=== PATIENT | female | born 1945 | race African-American/Black ===

== ENCOUNTER 2017-06-29 06:02 | Inpatient (IN) | payer MEDICARE, OTHER ==
[2017-06-29] VITALS (12 sets, daily range): BP systolic 138–162; BP diastolic 85–108
[~2017-06-29] VITALS: Ht 165.1 cm; Wt 78.0 kg
[2017-06-29] MEDS ORDERED: ETOMIDATE (2MG/ML) 20ML VIAL IV ONE (06:12)
[2017-06-29] MEDS ORDERED: SUCCINYLCHOLINE CHLORIDE 20 MG/ML 10ML VIAL IV ONE (06:13)
[2017-06-29] MEDS ORDERED: EPINEPHrine HCL 1 MG/1 ML AMP IM ONE (06:15)
[2017-06-29] MEDS ORDERED: methylPREDNISolone SOD SUCC 125 MG/2 ML VL IV ONE (06:15)
[2017-06-29] MEDS ORDERED: FAMOTIDINE (10MG/ML) 2ML VL IV ONE (06:15)
[2017-06-29] MEDS ORDERED: diphenhdrAMINE HCL 50 MG/1 ML VL IV ONE (06:15)
[2017-06-29] MEDS ORDERED: SODIUM CHLORIDE 0.9% 1,000 ML IV ONE ×2 (06:30→07:16)
[2017-06-29 07:57] LABS: Basophils # (auto) 0.1 uL; Basophils % (auto) 0.5 % (0.0-2.0); Eosinophils # (auto) 0 uL; Eosinophils % (auto) 0.2 % (0.0-7.0); Hematocrit 38.8 % (36.0-46.0); Hemoglobin 12.7 g/dL (12.2-16.2); Lymphocytes # (auto) 1.5 uL; Lymphocytes % (auto) 14.1 % (10.0-50.0); Mean Corpuscular Hgb Conc. 32.8 g/dL (32.0-36.0); Mean Corpuscular Volume 91.6 fL (80.0-100.0); Monocytes # (auto) 0.4 uL; Monocytes % (auto) 3.8 % (0.0-12.0); Neutrophils # (auto) 8.4 uL; Neutrophils % (auto) 81.4 % (37.0-80.0); Platelet Count (auto) 329 10^3/uL (140-450); Red Blood Cells 4.24 10^6/uL (4.0-5.20); Red Cell Distribution Width 13.7 % (11.8-14.3); White Blood Cell 10.3 10^3/uL (4.4-10.8)
[2017-06-29 08:10] LABS: Alanine Aminotransferase 31 U/L (13-56); Albumin 3.6 g/dL (3.4-5.0); Anion Gap 12 (5-15); Aspartate Aminotransferase 27 U/L (15-37); BUN/Creatinine Ratio 15.1; Blood Urea Nitrogen 14 mg/dL (7-18); Calcium 8.8 mg/dL (8.5-10.1); Carbon Dioxide 23 mmol/L (21-32); Chloride 103 mmol/L (98-107); GFR African American 77 mL/min; GFR Non-African American 64 mL/min; Glucose 150 mg/dL (74-106); Sodium 138 mmol/L (136-145)
[2017-06-29 08:13] LABS: Potassium 2.9 mmol/L (3.5-5.1)
[2017-06-29 08:15] LABS: Alkaline Phosphatase 107 U/L (45-117); Bilirubin, Total 0.5 mg/dL (0.2-1.0); Total Protein 8.6 g/dL (6.4-8.2)
[2017-06-29 08:16] LABS: INR 0.98 (0.9-1.15); Partial Thromboplastin Time 31.5 sec (22.64-33.71); Prothrombin Time 10.7 sec (9.37-12.3)
[2017-06-29] MEDS ORDERED: POTASSIUM CHL 10% (20 MEQ/15ML) 15ml ORAL SOLN PO ONE (08:30)
[2017-06-29] MEDS ORDERED: MORPHINE SULFATE 4 MG/ML SYR/VIAL IV PRN ×2 (09:00)
[2017-06-29] MEDS ORDERED: HYDROcodone-ACET 5/325MG TAB PO PRN (09:00)
[2017-06-29] MEDS ORDERED: ALBUTEROL SULF 2.5 MG/0.5ML(0.5%) NEB SOLN NEB PRN (09:00)
[2017-06-29] MEDS ORDERED: PROMETHAZINE HCL 25 MG/ML 1ML IV PRN (09:00)
[2017-06-29] MEDS ORDERED: NITROGLYCERIN 0.4 MG SL TAB SL PRN (09:00)
[2017-06-29] MEDS ORDERED: ACETAMINOPHEN 500 MG TAB PO PRN (09:00)
[2017-06-29] MEDS ORDERED: TEMAZEPAM 15 MG CAP PO PRN (09:00)
[2017-06-29] MEDS ORDERED: LORazepam 0.5 MG TAB PO PRN (09:00)
[2017-06-29] MEDS: FAMOTIDINE (10MG/ML) 2ML VL IV SCH ×2 (10:19→21:52)
[2017-06-29] MEDS: ALBUTEROL SULF 2.5 MG/0.5ML(0.5%) NEB SOLN NEB SCH ×2 (11:10→18:35)
[2017-06-29] MEDS: methylPREDNISolone SOD SUCC 40 MG/ML VL IV SCH ×3 (12:07→23:36)
[2017-06-29] MEDS ORDERED: LISI2.5T47 PO (17:08)
[2017-06-30] MEDS: ALBUTEROL SULF 2.5 MG/0.5ML(0.5%) NEB SOLN NEB SCH ×2 (02:02→05:53)
[2017-06-30 05:00] VITALS: BP 133/96
[2017-06-30] MEDS: methylPREDNISolone SOD SUCC 40 MG/ML VL IV SCH ×2 (05:37→11:34)
[2017-06-30 07:04] LABS: Basophils # (auto) 0.1 uL; Basophils % (auto) 0.5 % (0.0-2.0); Eosinophils # (auto) 0 uL; Hemoglobin 10.7 g/dL (12.2-16.2); Lymphocytes # (auto) 1.2 uL; Lymphocytes % (auto) 10.2 % (10.0-50.0); Mean Corpuscular Hemoglobin 29.8 pg (28.0-32.0); Mean Corpuscular Hgb Conc. 32.4 g/dL (32.0-36.0); Mean Corpuscular Volume 91.8 fL (80.0-100.0); Monocytes # (auto) 0.5 uL; Monocytes % (auto) 4.6 % (0.0-12.0); Neutrophils % (auto) 84.7 % (37.0-80.0); Nucleated Red Blood Cells % 0.1 %; Platelet Count (auto) 302 10^3/uL (140-450); Red Blood Cells 3.59 10^6/uL (4.0-5.20); Red Cell Distribution Width 13.9 % (11.8-14.3); White Blood Cell 11.8 10^3/uL (4.4-10.8)
[2017-06-30 07:23] LABS: Albumin 3.3 g/dL (3.4-5.0); BUN/Creatinine Ratio 17.8; Calcium 8.8 mg/dL (8.5-10.1); Potassium 3.5 mmol/L (3.5-5.1)
[2017-06-30 07:26] LABS: Bilirubin, Total 0.3 mg/dL (0.2-1.0); Total Protein 8.1 g/dL (6.4-8.2)
[2017-06-30 08:33] VITALS: BP 140/98
[2017-06-30] MEDS: FAMOTIDINE (10MG/ML) 2ML VL IV SCH (09:26)
[2017-06-30 11:53] VITALS: BP 144/86
[2017-06-30 12:10] VITALS: BP 144/86
== END 2017-06-30 12:30 | disposition home or self-care (01) | DRG 916 ==
LOC: ER 06:02 → TELE 06:03 → TELE-CENTR 16:56
PROVIDERS: ADMIT Internal Medicine; ATTEND Internal Medicine
PROC: 30233L1 Transfusion of Nonautologous Fresh Plasma into Peripheral Vein, Percutaneous Approach (ICD-10-PCS; principal; 2017-06-29)
PROC: 30233K1 Transfusion of Nonautologous Frozen Plasma into Peripheral Vein, Percutaneous Approach (ICD-10-PCS; 2017-06-29)
DX: T78.3XXA Angioneurotic edema, initial encounter (principal); I10 Essential (primary) hypertension; Z82.49 Family history of ischemic heart disease and other diseases of the circulatory system; T46.4X5A Adverse effect of angiotensin-converting-enzyme inhibitors, initial encounter
CPT/HCPCS: 36415; 36430; 71045; 80053; 83880; 84484; 85025; 85610; 85652; 85730; 86850; 86900; 86901; 94640; 96372; 96374; 96375; 99291; J0330; J3490

== ENCOUNTER 2024-09-04 01:29 | Inpatient (IN) | payer OTHER ==
[~2024-09-04] VITALS: Ht 167.6 cm; Wt 71.0 kg
[2024-09-04] VITALS (10 sets, daily range): BP systolic 95–109; BP diastolic 60–68; PULSE 76–113; RESP 18–32; TEMP 98–98.7; O2SAT 0–98
[~2024-09-04 01:29] MED LIST: LISI2.5T47 PO
--- NOTE | 2024-09-04 01:44 | ED.PDOC ---
Altered Mental Status HPI Comments 79 year old female presents to the ED via EMS with a chief complaint of ALOC onset yesterday. Per EMS, patient woke up yesterday experiencing some confusion, loss of appetite. Daughter checked on patient about an hour ago, noticed patient urinated on herself, urine had a strong odor, which is unusual for patient to urinate on herself, 911 was called. PMHx HTN. Upon ED arrival, patient is able to answer her name but is not able to state year or city. Patient denies any abdominal pain. Patient is a poor historian. Chief Complaint: ALOC Time Seen by MD: 01:40 Primary Care Provider: DR KIM Reviewed Notes: Medications, Allergies Allergies: Coded Allergies: NO KNOWN ALLERGIES (Unverified , 03/07/16) Home Meds Reported Medications Lisinopril (Lisinopril) Unknown Strength Tab, PO DAILY, TAB 06/29/17 Information Source: Patient, Emergency Med Personnel Mode of Arrival: EMS Severity: Moderate Timing: Days Duration: Since onset Prehospital treatment: None Quality: Decreased Alertness, Change in Behavior, Confusion, Not Eating Recent: None History of: None Associated Signs and Symptoms: None Past Medical History PAST MEDICAL HISTORY: HTN Surgical History: Denies all surgeries HIGH SPEED PRINTER OPERATOR History: No Pertinent HIGH SPEED PRINTER OPERATOR History Family History Family History: Unknown Social History Smoker: Non-Smoker Alcohol: Denies ETOH Use Drugs: Denies Drug Use Lives In: Home Unable to Obtain due to: Altered Mental Status Physical Exam General Appearance: No Apparent Distress, Normal HEENT: Normal ENT Inspection, Pharynx Normal, TMs Normal Neck: Full Range of Motion, Non-Tender, Normal, Normal Inspection Respiratory: Chest Non-Tender, Lungs Clear, No Accessory Muscle Use, No Resp iratory Distress, Normal Breath Sounds Cardiovascular: No Edema, No JVD, No Murmur, No Gallop, Normal Peripheral Pulses, Regular Rate/Rhythm Breast Exam: Deferred Gastrointestinal: No Organomegaly, Non Tender, No Pulsatile Mass, Normal Bowel Sounds, Soft Genitalia: Deferred Pelvic: Deferred Rectal: Deferred Extremities: No calf tenderness, Normal capillary refill, Normal inspection, Normal range of motion, Non-tender, No pedal edema Musculoskeletal : Apperance: Normal Neurologic: Alert, awning frame maker II-XII nml as Tested, No Motor Deficits, Normal Affect, Normal Mood, No Sensory Deficits Cerebellar Function: Normal Reflexes: Normal Skin: Dry, Normal Color, Warm Lymphatic: No Adenopathy Was a procedure done? Was a procedure done?: No Differential Diagnosis (ALOC) Differential Diagnosis: Dehydration, Hypoglycemia, Encephalopathy, Meningitis, Sepsis, Hypoxemia, Seizure, Closed Head Injury, Mass Lesion, SAH, Drug Overdose, ETOH Intoxication, Renal Failure, Other X-Ray, Labs, Meds, VS Vital Signs Date Time Temp Pulse Resp B/P (MAP) Pulse Ox O2 Delivery O2 Flow Rate FiO2 09/04/24 03:48 90 Non-Rebreather 15 100 100 09/04/24 02:15 98.2 102 22 103/66 (78) 92 98.2 09/04/24 01:39 98.4 109 18 117/77 (90) 96 98.4 09/04/24 01:35 111 Lab Test 09/04/24 02:39 09/04/24 01:56 09/04/24 01:38 Range/Units Troponin I High Sensitivity 7 8 </=34 ng/L White Blood Count 7.8 4.4-10.8 10^3/uL Red Blood Count 4.32 4.0-5.20 10^6/uL Hemoglobin 13.4 12.2-16.2 g/dL Hematocrit 40.4 36.0-46.0 % Mean Corpuscular Volume 93.7 80.0-100.0 fL Mean Corpuscular Hemoglobin 31.1 28.0-32.0 pg Mean Corpuscular Hemoglobin Concent 33.2 32.0-36.0 g/dL Red Cell Distribution Width 13.9 11.8-14.3 % Platelet Count 150 140-450 10^3/uL Mean Platelet Volume 7.1 6.9-10.8 fL Neutrophils (%) (Auto) 88.6 H 37.0-80.0 % Lymphocytes (%) (Auto) 7.2 L 10.0-50.0 % Monocytes (%) (Auto) 3.8 0.0-12.0 % Eosinophils (%) (Auto) 0.0 0.0-7.0 % Basophils (%) (Auto) 0.4 0.0-2.0 % Neutrophils # (Auto) 6.9 1.6-8.6 10 ^3/uL Lymphocytes # (Auto) 0.6 0.4-5.4 10 ^3/uL Monocytes # (Auto) 0.3 0-1.3 10 ^3/uL Eosinophils # (Auto) 0 0-0.8 10 ^3/uL Basophils # (Auto) 0 0-0.2 10 ^3/uL Nucleated Red Blood Cells 0.1 % Sodium Level 137 136-145 mmol/L Potassium Level 3.0 L 3.5-5.1 mmol/L Chloride Level 106 98-107 mmol/L Carbon Dioxide Level 18 L 20-31 mmol/L Anion Gap 13 5-15 Blood Urea Nitrogen 19 9-23 mg/dL Creatinine 1.17 H 0.550-1.02 mg/dL Glomerular Filtration Rate Calc 48 >90 mL/min BUN/Creatinine Ratio 16.2 10.0-20.0 Serum Glucose 138 H 74-106 mg/dL Lactic Acid Level 1.7 0.4-2.0 mmol/L Calcium Level 9.5 8.7-10.4 mg/dL Magnesium Level 2.0 1.6-2.6 mg/dL Total Bilirubin 0.6 0.2-1.0 mg/dL Aspartate Amino Transferase (AST) 32 13-40 U/L Alanine Aminotransferase (ALT) 16 7-40 U/L Alkaline Phosphatase 69 46-116 U/L Total Protein 7.5 5.7-8.2 g/dL Albumin 4.2 3.2-4.8 g/dL Plasma/Serum Blood Alcohol < 3.0 <10 mg/dL POC Glucose 111 H 70-106 mg/dl Current Medications Medications (Trade) Dose Ordered Sig/Jose Route Start Time Stop Time Status Last Admin Sodium Chloride 1,000 ml @ 1,000 mls/hr Q1H ONCE IVB 09/04/24 01:45 09/04/24 02:44 DC 09/04/24 01:47 Ceftriaxone Sodium 50 ml @ 100 mls/hr ONCE ONCE IV 09/04/24 03:15 09/04/24 03:44 DC 09/04/24 03:38 Azithromycin 250 ml @ 125 mls/hr ONCE ONCE IV 09/04/24 03:15 09/04/24 05:14 09/04/24 03:47 Time of 1ST Reevaluation: 02:10 Reevaluation 1ST: Unchanged Time of 2ND Reevaluation: 03:52 Reevaluation 2ND: Unchanged Patient Education/Counseling: Diagnosis, Treatment, Prognosis Family Education/Counseling: No Family Present Additional Information The following tests were ordered, and results were reviewed by me: EKG, BLOOD A LCOHOL, TROP-x2, CBC, CMP, LA W/ REFLEX, UA, XY CHEST, CT HEAD WO CONTRAST, BLOOD CULTURE, URINE BACTERIAL CULTURE, MAGNESIUM, Additional Information was gathered from interviewing the following independent historians: EMS I reviewed and agreed with the following test results read by other providers: XY CHEST, CT HEAD WO CONTRAST, I discussed treatment and results with medical personnel and: Patient Comprehensive systems review obtained and negative except for what is stated in the HPI. Sepsis focused exam: focus exam completed (In the initial resuscitation at least 30 mL/kg of IV crystalloid fluid was NOT given within the first 3 hr due to concerns of fluid overload), time: (0230) Sepsis Sepsis Reasesment Focused Exam Sepsis focused exam: focus exam completed (In the initial resuscitation at least 30 mL/kg of IV crystalloid fluid was NOT given within the first 3 hr due to concerns of fluid overload), time: (229) Departure 1 Departure Time of Disposition: 03:53 Impression: Primary Impression: Altered mental status Additional Impressions: Pneumonia Dementia Respiratory failure with hypoxia Syncope Disposition: ADMITTED INPATIENT Condition: Guarded Discharged With: Self, Relative Comments Altered Mental Status with Seizure-like Activity Chief Complaint: Altered mental status with seizure-like activity History of Present Illness: 79-year-old female with known history of mild dementia presented via EMS after her daughter noticed increased confusion from baseline. Per EMS report, patient experienced an episode where she stiffened up with eye rolling and became unresponsive for approximately one minute before regaining consciousness. A similar episode was witnessed upon arrival to the ED. After these episodes, patient regained consciousness quickly but remained oriented only to self. Patient denies any pain or other complaints. Notably, patient was found to be hypoxic on room air, requiring supplemental oxygen via nasal cannula at 4L/min to maintain adequate oxygenation. Review of Systems: Constitutional: Positive for altered mental status Neurological: Positive for confusion, seizure-like activity Respiratory: Positive for hypoxia All other systems: Patient unable to provide reliable review due to confusion Vital Signs: Only documented vital sign: Hypoxia on room air, requiring 4L NC with improvement in oxygen saturation Physical Exam: Mental Status: Oriented to self only, confused from baseline Lab Results: WBC: 7.8 (normal) Potassium: 3.0 (low) Creatinine: 1.17 (slightly elevated) Chemistry panel: Otherwise normal Troponin: Normal Alcohol level: Undetectable Imaging and Other Relevant Results: Chest X-ray: Right-sided pneumonia Medical Decision Making: Summary Statement: 79-year-old female with history of dementia presenting with acute altered mental status, seizure-like activity, and hypoxia found to have right-sided pneumonia. Problem List: 1. Acute altered mental status 2. Seizure-like activity 3. Right- sided pneumonia 4. Hypoxic respiratory failure 5. Hypokalemia 6. Mild renal insufficiency Differential Diagnosis: 1. Healthcare-associated pneumonia 2. New-onset seizures 3. Metabolic encephalopathy 4. Acute delirium 5. Sepsis ED Course: Patient received IV fluids, empiric antibiotics (Rocephin and azithromycin IV), and supplemental oxygen. Decision made to admit for further workup and management. Assessment and Plan: 1. Altered Mental Status/Seizure-like Activity: - Likely secondary to underlying pneumonia and hypoxia - Will require neurological evaluation during admission - Consider EEG monitoring 2. Right-sided Pneumonia: - Started on IV Rocephin and azithromycin - Continue supplemental oxygen as needed - Monitor respiratory status 3. Hypoxic Respiratory Failure: - Currently stable on 4L NC - Continue oxygen supplementation - Monitor oxygen saturation 4. Hypokalemia (K=3.0): - Initiate potassium replacement - Serial electrolyte monitoring Disposition: Admit to medical floor for further management and workup Billing Information: ICD-10: J18.9 - Pneumonia, unspecified organism ICD-10: R56.9 - Unspecified convulsions ICD-10: J96.01 - Acute respiratory failure with hypoxia ICD-10: F03.90 - Unspecified dementia without behavioral disturbance ICD-10: R55 - Syncope and collapse Critical Care Note Critical Care Time?: Yes (35 min-critical care time only) Critical care comment: Total critical care time: Approximately 36 minutes Due to a high probability of clinically significant, life threatening deterioration, the patient required my highest level of preparedness to intervene emergently and I personally spent this critical care time directly and personally managing the patient. This critical care time included obtaining a history; examining the patient; pulse oximetry; ordering and review of studies; arranging urgent treatment with development of a management plan; evaluation of patient's response to treatment; frequent reassessment; and, discussions with other providers. This critical care time was performed to assess and manage the high probability of imminent, life-threatening deterioration that could result in multi-organ failure. It was exclusive of separately billable procedures and treating other patients. Stability Stability form required: No Heart Score Heart Score: Heart Score Response (Comments) Value History Slightly Suspicious 0 EKG Normal 0 Age >65 2 Risk Factors 1 or 2 risk factors 1 Troponin Normal limit 0 Total 3 I personally scribed for SANTI MYLES MD ([email or web address]) on 09/04/24 at 01:44. Electronically submitted by Kassie Mann ([email or web address]). I personally scribed for SANTI MYLES MD ([email or web address]) on 09/04/24 at 01:47. Electronically submitted by Kassie Mann ([email or web address]). SANTI MYLES MD Sep 04, 2024 01:44
[2024-09-04] MEDS: SODIUM CHLORIDE 0.9% 1,000 ML IVB ONE (01:47)
[2024-09-04 02:16] LABS: Basophils # (auto) 0 10 ^3/uL (0-0.2); Basophils % (auto) 0.4 % (0.0-2.0); Eosinophils # (auto) 0 10 ^3/uL (0-0.8); Hematocrit 40.4 % (36.0-46.0); Hemoglobin 13.4 g/dL (12.2-16.2); Lymphocytes # (auto) 0.6 10 ^3/uL (0.4-5.4); Lymphocytes % (auto) 7.2 % (10.0-50.0); Mean Corpuscular Hemoglobin 31.1 pg (28.0-32.0); Mean Corpuscular Hgb Conc. 33.2 g/dL (32.0-36.0); Mean Corpuscular Volume 93.7 fL (80.0-100.0); Monocytes # (auto) 0.3 10 ^3/uL (0-1.3); Monocytes % (auto) 3.8 % (0.0-12.0); Neutrophils # (auto) 6.9 10 ^3/uL (1.6-8.6); Neutrophils % (auto) 88.6 % (37.0-80.0); Nucleated Red Blood Cells % 0.1 %; Platelet Count (auto) 150 10^3/uL (140-450); Red Blood Cells 4.32 10^6/uL (4.0-5.20); Red Cell Distribution Width 13.9 % (11.8-14.3); White Blood Cell 7.8 10^3/uL (4.4-10.8)
--- NOTE | 2024-09-04 02:28 | DVH ---
CHEST RADIOGRAPH Indication: weak, ALOC Technique: Single frontal view of the chest was obtained COMPARISON: None FINDINGS: Lines and Tubes: None Lungs: Consolidative infiltrate is noted within the medial right lung base. Pleura: No effusion. No pneumothorax. Cardiomediastinal contours: Unremarkable Bones: Unremarkable IMPRESSION: 1. Medial right lung base pneumonia.
--- NOTE | 2024-09-04 02:34 | DVH ---
EXAM: CT HEAD WITHOUT CONTRAST INDICATION: ALOC TECHNIQUE: CT of the head without intravenous contrast. Radiation Dose : 1. Head: CT Dose: CTDI volume is 62.79 mGy. Dose-length product is 1235.85 mGy*cm The dose indicators for CT are the volume Computed Tomography (CT) Dose Index (CTDIvol) and the Dose Length Product (DLP), and are measured in units of mGy and mGy-cm, respectively. These indicators are not patient dose, but values generated from the CT scanner acquisition factors. The report includes radiation exposure data for exposures received during this examination. COMPARISON: None FINDINGS: There is no evidence of acute intracranial hemorrhage, extra-axial collection, mass effect, midline s hift, herniation or hydrocephalus. The ventricles, sulci and cisterns are age appropriate. The rebollar-white differentiation is intact. Patchy periventricular and subcortical white matter hypoattenuation is nonspecific but may be related to small vessel ischemic disease. The visualized paranasal sinuses and mastoid air cells are clear. The surrounding soft tissues and osseous structures are unremarkable. IMPRESSION: 1. No acute intracranial abnormality. 2. Chronic sequelae of microvascular disease. Radiation optimization: All CT scans at this facility use at least one of these dose optimization gloria hniques: automated exposure control mA and/or kV adjustment per patient size (includes targeted exam s where dose is matched to clinical indication) or iterative reconstruction.
[2024-09-04 03:11] LABS: Alanine Aminotransferase 16 U/L (7-40); Albumin 4.2 g/dL (3.2-4.8); Alkaline Phosphatase 69 U/L (46-116); Anion Gap 13 (5-15); Aspartate Aminotransferase 32 U/L (13-40); BUN/Creatinine Ratio 16.2 (10.0-20.0); Blood Urea Nitrogen 19 mg/dL (9-23); Calcium 9.5 mg/dL (8.7-10.4); Chloride 106 mmol/L (98-107); Sodium 137 mmol/L (136-145); Total Protein 7.5 g/dL (5.7-8.2)
[2024-09-04 03:12] LABS: Bilirubin, Total 0.6 mg/dL (0.2-1.0)
[2024-09-04 03:23] LABS: Carbon Dioxide 18 mmol/L (20-31); Glucose 138 mg/dL (74-106)
[2024-09-04] MEDS: cefTRIAXone 1GM/50ML D5W 50 ML IV ONE (03:38)
[2024-09-04 03:47] LABS: Blood Alcohol < 3.0 mg/dL (<10)
[2024-09-04] MEDS: AZITHROMYCIN 500MG/ 250ML 250 ML IV ONE (03:47)
[2024-09-04] MEDS: ONDANSETRON HCL 4 MG/2 ML VIAL IV ONE (04:16)
[2024-09-04] MEDS ORDERED: NITROGLYCERIN 0.4 MG SL TAB SL PRN (04:30)
[2024-09-04] MEDS ORDERED: MORPHINE SULFATE INJ 2 MG/ml SYRG IV PRN (04:30)
[2024-09-04] MEDS ORDERED: ONDANSETRON HCL 4 MG/2 ML VIAL IV PRN (04:30)
[2024-09-04] MEDS ORDERED: ACETAMINOPHEN 325 MG TAB PO PRN (04:30)
[2024-09-04] MEDS ORDERED: ALBUTEROL SULF 2.5 MG/0.5ML(0.5%) NEB SOLN NEB PRN (04:30)
--- NOTE | 2024-09-04 05:01 | ECG ---
[facility] Test Date: 2024-09-04 Test Time: 01:35:34 Pat Name: EDU BERMUDEZ Department: ED Room: 0280T Gender: F Assessment Clinician: er : 1945 Requested By: SANTI MYLES Order Number: [id number] Reading MD: Yohan Holloway Measurements Intervals Ramsey Rate: 111 P: 62 MI: 166 QRS: -7 QRSD: 104 T: 77 QT: 357 QTc: 485 Interpretive Statements Sinus tachycardia Atrial premature complex Borderline repolarization abnormality Borderline prolonged QT interval Baseline wander in lead(s) I,II,aVR Electronically Signed On 09-07-2024 20:21:10 PDT by Yohan Holloway Please click the below link to view image of tracing.
--- NOTE | 2024-09-04 05:20 | DVHHP2 ---
History of Present Illness Reason for Visit: Altered mental status History of Present Illness 79-year-old female presents for evaluation of altered mental status. Patient is currently lethargic oriented x2. Per family he is at the bedside patient became progressively more altered yesterday with decreased appetite. She also urinated on herself. They report the urine having strong odor. On arrival to the emergency department patient was also noted to be hypoxic and was placed on high-flow oxygen for a short period of time. Currently the patient is on facemask saturating 97%. No complaints of chest pain. No unilateral weakness or slurred speech noted. Past Medical History Hypertension Past Surgical History None Family History Noncontributory Smoke: No ALCOHOL: none Drugs: None Lives: with Family Review of Systems Review of Systems Review of Systems are limited due to the patient's altered mental status Allergies: Coded Allergies: NO KNOWN ALLERGIES (Unverified , 03/07/16) Medications Current Medications Medications Dose Ordered Sig/Jose Route Start Time Stop Time Status Last Admin Dose Admin Ceftriaxone Sodium 50 ml @ 100 mls/hr DAILY@09 IV 09/05/24 09:00 Azithromycin 250 ml @ 125 mls/hr DAILY IV 09/05/24 10:00 Albuterol 2.5 mg Q6HPRN PRN NEB 09/04/24 04:30 Ondansetron HCl 4 mg Q4HP PRN IV 09/04/24 04:30 Enoxaparin Sodium 40 mg DAILY SC 09/04/24 10:00 Acetaminophen 650 mg Q6HP PRN PO 09/04/24 04:30 Nitroglycerin 0.4 mg Q5MINP PRN SL 09/04/24 04:30 Morphine Sulfate 2 mg Q30M PRN IV 09/04/24 04:30 Exam Vital Signs Vital Signs Date Time Temp Pulse Resp B/P (MAP) Pulse Ox O2 Delivery O2 Flow Rate FiO2 09/04/24 04:32 91 Non-Rebreather 15.0 09/04/24 04:32 N/A 09/04/24 04:32 98.2 113 32 103/66 98.2 Exam Gen: 79-year-old female in mild distress Skin: Warm, dry, normal color and texture, no rash. HEENT: Normocephalic atraumatic, mucous membranes moist and pink. Neck: Cervical and supraclavicular nodes normal without enlargement, trachea is midline, thyroid gland is normal without masses. Pulmonary: Diminished breath sounds bilaterally Cardiac: Regular rate and rhythm. No murmur Abdomen: Soft, nontender, nondistended, bowel sounds present all 4 quadrants, no guarding, no rigidity, no organomegaly. Extremities: No cyanosis, clubbing, no edema Neuro: Lethargic, no focal deficits Labs/Xrays ORDERING PHYSICIAN: SANTI MYLES MD PROCEDURE(s): CXRP - CHEST PORTABLE REASON: weak, ALOC ORDER NUMBER(s): [id number], ACCESSION NUMBER(s): [id number] CHEST RADIOGRAPH Indication: weak, ALOC Technique: Single frontal view of the chest was obtained COMPARISON: None FINDINGS: Lines and Tubes: None Lungs: Consolidative infiltrate is noted within the medial right lung base. Pleura: No effusion. No pneumothorax. Cardiomediastinal contours: Unremarkable Bones: Unremarkable IMPRESSION: 1. Medial right lung base pneumonia. RING PHYSICIAN: SANTI MYLES MD PROCEDURE(s): HWOCT - HEAD WITHOUT CONTRAST REASON: ALOC ORDER NUMBER(s): [id number], ACCESSION NUMBER(s): [id number] EXAM: CT HEAD WITHOUT CONTRAST INDICATION: ALOC TECHNIQUE: CT of the head without intravenous contrast. Radiation Dose : 1. Head: CT Dose: CTDI volume is 62.79 mGy. Dose-length product is 1235.85 mGy*cm The dose indicators for CT are the volume Computed Tomography (CT) Dose Index (CTDIvol) and the Dose Length Product (DLP), and are measured in units of mGy and mGy-cm, respectively. These indicators are not patient dose, but values generated from the CT scanner acquisition factors. The report includes radiation exposure data for exposures received during this examination. COMPARISON: None FINDINGS: There is no evidence of acute intracranial hemorrhage, extra-axial collection, mass effect, midline shift, herniation or hydrocephalus. The ventricles, sulci and cisterns are age appropriate. The rebollar-white differentiation is intact. Patchy periventricular and subcortical white matter hypoattenuation is nonspecific but may be related to small vessel ischemic disease. The visualized paranasal sinuses and mastoid air cells are clear. The surrounding soft tissues and osseous structures are unremarkable. IMPRESSION: 1. No acute intracranial abnormality. 2. Chronic sequelae of microvascular disease. Radiation optimization: All CT scans at this facility use at least one of these dose optimization techniques: automated exposure control mA and/or kV adjustment per patient size (includes targeted exams where dose is matched to clinical indication) or iterative reconstruction. Labs Test 09/04/24 02:39 09/04/24 01:56 09/04/24 01:38 Range/Units Troponin I High Sensitivity 7 </=34 ng/L White Blood Count 7.8 4.4-10.8 10^3/uL Red Blood Count 4.32 4.0-5.20 10^6/uL Hemoglobin 13.4 12.2-16.2 g/dL Hematocrit 40.4 36.0-46.0 % Mean Corpuscular Volume 93.7 80.0-100.0 fL Mean Corpuscular Hemoglobin 31.1 28.0-32.0 pg Mean Corpuscular Hemoglobin Concent 33.2 32.0-36.0 g/dL Red Cell Distribution Width 13.9 11.8-14.3 % Platelet Count 150 140-450 10^3/uL Mean Platelet Volume 7.1 6.9-10.8 fL Neutrophils (%) (Auto) 88.6 H 37.0-80.0 % Lymphocytes (%) (Auto) 7.2 L 10.0-50.0 % Monocytes (%) (Auto) 3.8 0.0-12.0 % Eosinophils (%) (Auto) 0.0 0.0-7.0 % Basophils (%) (Auto) 0.4 0.0-2.0 % Neutrophils # (Auto) 6.9 1.6-8.6 10 ^3/uL Lymphocytes # (Auto) 0.6 0.4-5.4 10 ^3/uL Monocytes # (Auto) 0.3 0-1.3 10 ^3/uL Eosinophils # (Auto) 0 0-0.8 10 ^3/uL Basophils # (Auto) 0 0-0.2 10 ^3/uL Nucleated Red Blood Cells 0.1 % D-Dimer, Quantitative 0.73 H 0.0-0.49 mg/L FEU Sodium Level 137 136-145 mmol/L Potassium Level 3.0 L 3.5-5.1 mmol/L Chloride Level 106 98-107 mmol/L Carbon Dioxide Level 18 L 20-31 mmol/L Anion Gap 13 5-15 Blood Urea Nitrogen 19 9-23 mg/dL Creatinine 1.17 H 0.550-1.02 mg/dL Glomerular Filtration Rate Calc 48 >90 mL/min BUN/Creatinine Ratio 16.2 10.0-20.0 Serum Glucose 138 H 74-106 mg/dL Lactic Acid Level 1.7 0.4-2.0 mmol/L Calcium Level 9.5 8.7-10.4 mg/dL Magnesium Level 2.0 1.6-2.6 mg/dL Total Bilirubin 0.6 0.2-1.0 mg/dL Aspartate Amino Transferase (AST) 32 13-40 U/L Alanine Aminotransferase (ALT) 16 7-40 U/L Alkaline Phosphatase 69 46-116 U/L Total Protein 7.5 5.7-8.2 g/dL Albumin 4.2 3.2-4.8 g/dL Plasma/Serum Blood Alcohol < 3.0 <10 mg/dL POC Glucose 111 H 70-106 mg/dl Assessment/Plan Assessment/Plan Assessment Metabolic encephalopathy Community-acquired pneumonia Acute hypoxic respiratory failure Hypokalemia Possible urinary tract infection Plan Admit the patient to [facility] to the hospitalist Rocephin/azithromycin Med nebs UA pending Continue treatment per orders Total critical care time excluding procedures performed this 50 minutes. Plan discussed with: Patient My Orders Orders - SARAH DELANEY AGACNP Procedure Category Date Status Time Albuterol Medneb PHA 09/04/24 In Process (Ventolin Medneb) 04:30 Admit ADMIT 09/04/24 Transmitted 04:25 Ondansetron Hcl PHA 09/04/24 In Process (Zofran) 04:30 Enoxaparin Sodium PHA 09/04/24 In Process (Lovenox) 10:00 Complete Blood Count LAB 09/05/24 Verified 04:00 Comprehensive LAB 09/05/24 Verified Metabolic Panel 04:00 Cardiac DIET 09/04/24 Transmitted Diet-2gna,Lofat,Lochol Breakfast Condition: Critical ALEXUS 09/04/24 In Process 04:25 Acetaminophen Tablet PHA 09/04/24 In Process (Tylenol Tablet) 04:30 Bedrest With Bathroom ALEXUS 09/04/24 In Process Privileg 04:25 Nitroglycerin PHA 09/04/24 In Process Sublingual (Ntrostat 04:30 Morphine Sulfate PHA 09/04/24 In Process Injection 04:30 Stat Ekg For Chest ALEXUS 09/04/24 In Process Pain 04:25 Notify Md Of Changes ALEXUS 09/04/24 In Process From Base 04:25 Edging Machine Operator For ALEXUS 09/04/24 In Process 24 Hours 04:25 Emergency Dysrhythmia ALEXUS 09/04/24 In Process Protocol 04:25 Rhythm Strips Once ALEXUS 09/04/24 In Process Every Shift 04:25 Oxygen By Nasal RT 09/04/24 Transmitted Cannula 04:25 Ceftriaxone 1gm/50ml PHA 09/05/24 In Process D5w (Rocephin) 09:00 Azithromycin 500mg/ PHA 09/05/24 In Process 250ml (Zithromax 50 10:00 Transfer Orders XFER 09/04/24 Verified 05:15 Date of Service: Sep 04, 2024 Billing Provider: SARAH DELANEY Common Visit Codes: [id number] CARE 30-74 MIN SARAH DELANEY Sep 04, 2024 05:20
[2024-09-04] MEDS: POTASSIUM EFFERVESENT TAB 25 MEQ PO ONE (06:26)
[2024-09-04] MEDS: ENOXAPARIN SOD 40 MG/0.4 ML SYRINGE SC SCH (10:13)
[2024-09-04] MEDS: SOD CHL 0.45% WITH 20MEQ KCL 1,000 ML IV ONE (11:12)
--- NOTE | 2024-09-04 12:07 | DVHPN2 ---
Subjective Patient was somewhat encephalopathic. Denies any symptoms at this time. Reviewed: Care Plan, H&P, Medications Changes from previous H/P or p: No Changes General: Per HPI Objective Vitals Vital Signs Date Time Temp Pulse Resp B/P (MAP) Pulse Ox O2 Delivery O2 Flow Rate FiO2 09/04/24 11:10 86 21 106/56 (73) 91 09/04/24 10:08 Non-Rebreather 15 N/A 09/04/24 04:32 98.2 98.2 General Appearance: Alert, Cooperative, mild distress, Other (Encephalopathic) HEENT: Atraumatic, PERRLA Lungs: Normal air movement, Other (Rhonchi to right lower lobe) Cardiovascular: Normal S1, Normal S2 Abdomen: Normal bowel sounds, Soft, No tenderness, No hepatospenomegaly, No masses Genitourinary: No Apparent Abnormalities Musculoskeletal: Normal sensory function, Normal motor function Skin: Dry, Intact Psych/Mental Status: Mental status NL, Mood NL Medications Current Medications Medications Dose Ordered Sig/Jose Route Start Time Stop Time Status Last Admin Dose Admin Ceftriaxone Sodium 50 ml @ 100 mls/hr DAILY@09 IV 09/05/24 09:00 Azithromycin 250 ml @ 125 mls/hr DAILY IV 09/05/24 10:00 Albuterol 2.5 mg Q6HPRN PRN NEB 09/04/24 04:30 Ondansetron HCl 4 mg Q4HP PRN IV 09/04/24 04:30 Enoxaparin Sodium 40 mg DAILY SC 09/04/24 10:00 09/04/24 10:13 40 MG Acetaminophen 650 mg Q6HP PRN PO 09/04/24 04:30 Nitroglycerin 0.4 mg Q5MINP PRN SL 09/04/24 04:30 Morphine Sulfate 2 mg Q30M PRN IV 09/04/24 04:30 Laboratory Results Laboratory Tests 09/04/24 01:56 Chemistry Test 09/04/24 01:56 Albumin 4.2 g/dL (3.2-4.8) Calcium Level 9.5 mg/dL (8.7-10.4) Magnesium Level 2.0 mg/dL (1.6-2.6) Total Protein 7.5 g/dL (5.7-8.2) Coagulation Test 09/04/24 01:56 D-Dimer, Quantitative 0.73 mg/L FEU (0.0-0.49) H LFT Test 09/04/24 01:56 Alanine Aminotransferase (ALT) 16 U/L (7-40) Alkaline Phosphatase 69 U/L (46-116) Aspartate Amino Transferase (AST) 32 U/L (13-40) Total Bilirubin 0.6 mg/dL (0.2-1.0) Labs and/or images reviewed: Labs reviewed by me, Image(s) reviewed by me Assessment/Plan Assessment/Plan Impression: -acute hypoxic respiratory failure -community-acquired pneumonia, probable Gram-positive/Gram-negative etiology -metabolic encephalopathy secondary to acute infection -primary hypertension -? Dementia -hypokalemia Plan: -patient continues to be encephalopathic. Discussion was made with the patient was daughter and son was bedside. Apparently, the patient is somewhat independent, noted to have lethargy prior to coming in the hospital. Denies having any symptoms of cough, dyspnea. -continue antibiotic therapy with azithromycin and Rocephin -bronchodilators -PUD, DVT prophylaxis -IV hydration -potassium replacement -repeat labs and x-ray in a.m. Total time spent with patient discussing and formulating plan of care: 35 minutes. This medical document was created using an electronic medical record system with [email or web address] computerized dictation system. Although this document has been carefully reviewed, there may still be some phonetic and typographical errors. These areas are purely typographical due to imperfections of the software programs, and do not reflect any compromise in the patient's medical care. Plan discussed with: Patient, Other (RN) My Orders Orders - REJI MATIAS NP Procedure Category Date Status Time Sod Chl 0.45% With PHA 09/04/24 In Process 20meq Kcl 11:00 Date of Service: Sep 04, 2024 Billing Provider: REJI MATIAS NP Common Visit Codes: [id number] INP/OBS CARE(HIGH) REJI MATIAS NP Sep 04, 2024 12:07
[2024-09-05] VITALS (11 sets, daily range): BP systolic 104–140; BP diastolic 64–75; PULSE 95–153; RESP 18–19; TEMP 97.8–99.2; O2SAT 93–98
[2024-09-05 06:58] LABS: Basophils # (auto) 0 10 ^3/uL (0-0.2); Basophils % (auto) 0.2 % (0.0-2.0); Eosinophils # (auto) 0 10 ^3/uL (0-0.8); Hematocrit 37.2 % (36.0-46.0); Hemoglobin 12.7 g/dL (12.2-16.2); Lymphocytes # (auto) 0.9 10 ^3/uL (0.4-5.4); Lymphocytes % (auto) 8.3 % (10.0-50.0); Mean Corpuscular Hemoglobin 31.2 pg (28.0-32.0); Mean Corpuscular Volume 91.6 fL (80.0-100.0); Monocytes # (auto) 0.2 10 ^3/uL (0-1.3); Monocytes % (auto) 2.2 % (0.0-12.0); Neutrophils # (auto) 9.6 10 ^3/uL (1.6-8.6); Neutrophils % (auto) 89.3 % (37.0-80.0); Platelet Count (auto) 128 10^3/uL (140-450); Red Blood Cells 4.06 10^6/uL (4.0-5.20); Red Cell Distribution Width 13.9 % (11.8-14.3); White Blood Cell 10.8 10^3/uL (4.4-10.8)
[2024-09-05 07:01] LABS: Alanine Aminotransferase 17 U/L (7-40); Alkaline Phosphatase 56 U/L (46-116); Anion Gap 12 (5-15); Carbon Dioxide 21 mmol/L (20-31); Chloride 105 mmol/L (98-107); Glucose 89 mg/dL (74-106); Sodium 138 mmol/L (136-145)
[2024-09-05 07:02] LABS: Aspartate Aminotransferase 35 U/L (13-40); BUN/Creatinine Ratio 20.7 (10.0-20.0); Total Protein 6.2 g/dL (5.7-8.2)
[2024-09-05 07:03] LABS: Albumin 3.6 g/dL (3.2-4.8)
[2024-09-05 07:04] LABS: Bilirubin, Total 0.8 mg/dL (0.2-1.0)
[2024-09-05 07:36] LABS: Blood Urea Nitrogen 28 mg/dL (9-23); Calcium 8.6 mg/dL (8.7-10.4)
[2024-09-05 08:41] LABS: Urine Bacteria FEW /hpf (None Seen); Urine Blood 3+ /uL (Negative); Urine Clarity Clear (Clear); Urine Color Yellow (Yellow); Urine Mucus FEW (None Seen); Urine Protein, UAD 1+ (Negative); Urine Specific Gravity 1.019 (1.001-1.035); Urine Squamous Epithelial Cell None Seen /hpf (<5); Urine Urobilinogen Normal (Negative); Urine WBC 5 /HPF (0-5); Urine pH 5.5 (5.0-9.0)
[2024-09-05] MEDS: cefTRIAXone 1GM/50ML D5W 50 ML IV SCH (09:00)
[2024-09-05] MEDS: TAMSULOSIN HYDROCHLORIDE 0.4 MG CAP PO SCH (10:00)
[2024-09-05] MEDS: AZITHROMYCIN 500MG/ 250ML 250 ML IV SCH (10:00)
--- NOTE | 2024-09-05 11:38 | DVH ---
CHEST RADIOGRAPH Indication: pneumonia Technique: Single frontal view of the chest was obtained Comparison: XY CHEST PORTABLE on DOS: 09/04/24, XY CHEST PORTABLE on DOS: 09/04/24 FINDINGS: Lines and Tubes: None Lungs: Consolidative infiltrate is noted within the medial right lung base. Pleura: No effusion. No pneumothorax. Cardiomediastinal contours: Unremarkable Bones: Unremarkable IMPRESSION: 1. Medial right lung base pneumonia.
--- NOTE | 2024-09-05 13:02 | DVHPN2 ---
Subjective Patient more alert today. Able to follow some commands. Reviewed: Care Plan, H&P, Medications Changes from previous H/P or p: No Changes General: Per HPI Objective Vitals Vital Signs Date Time Temp Pulse Resp B/P (MAP) Pulse Ox O2 Delivery O2 Flow Rate FiO2 09/05/24 07:33 Nasal Cannula* 3 32 09/05/24 05:00 98.1 97 18 104/66 (79) 98 98.1 Intake/Output Intake and Output 09/05/24 07:00 Intake Total 1245 ml Output Total 550 ml Balance 695 ml Intake Oral 1245 ml Output Urine Total 550 ml # Bowel Movements 2 General Appearance: Alert, Cooperative, mild distress, Other (Encephalopathic) HEENT: Atraumatic, PERRLA Lungs: Normal air movement, Other (Rhonchi to right lower lobe) Cardiovascular: Normal S1, Normal S2 Abdomen: Normal bowel sounds, Soft, No tenderness, No hepatospenomegaly, No masses Genitourinary: No Apparent Abnormalities Musculoskeletal: Normal sensory function, Normal motor function Skin: Dry, Intact Psych/Mental Status: Mental status NL, Mood NL Medications Current Medications Medications Dose Ordered Sig/Jose Route Start Time Stop Time Status Last Admin Dose Admin Ceftriaxone Sodium 50 ml @ 100 mls/hr DAILY@09 IV 09/05/24 09:00 09/05/24 09:00 100 MLS/HR Azithromycin 250 ml @ 125 mls/hr DAILY IV 09/05/24 10:00 09/05/24 10:00 125 MLS/HR Albuterol 2.5 mg Q6HPRN PRN NEB 09/04/24 04:30 Ondansetron HCl 4 mg Q4HP PRN IV 09/04/24 04:30 Enoxaparin Sodium 40 mg DAILY SC 09/04/24 10:00 09/05/24 10:00 40 MG Acetaminophen 650 mg Q6HP PRN PO 09/04/24 04:30 Nitroglycerin 0.4 mg Q5MINP PRN SL 09/04/24 04:30 Morphine Sulfate 2 mg Q30M PRN IV 09/04/24 04:30 Tamsulosin HCl 0.4 mg DAILY PO 09/05/24 10:00 Sodium Chloride 1,000 ml @ 75 mls/hr [id number] IV 09/05/24 10:30 Metoprolol Tartrate 25 mg BID PO 09/05/24 22:00 Laboratory Results Laboratory Tests 09/05/24 05:46 Chemistry Test 09/05/24 05:46 Albumin 3.6 g/dL (3.2-4.8) Calcium Level 8.6 mg/dL (8.7-10.4) L Total Protein 6.2 g/dL (5.7-8.2) LFT Test 09/05/24 05:46 Alanine Aminotransferase (ALT) 17 U/L (7-40) Alkaline Phosphatase 56 U/L (46-116) Aspartate Amino Transferase (AST) 35 U/L (13-40) Total Bilirubin 0.8 mg/dL (0.2-1.0) HgA1c, TSH Test 09/05/24 05:46 Thyroid Stimulating Hormone (TSH) 1.44 uIU/mL (0.55-4.78) Urinalysis Test 09/05/24 08:24 Urine Color Yellow (Yellow) Urine Clarity Clear (Clear) Urine pH 5.5 (5.0-9.0) Urine Specific [place] 1.019 (1.001-1.035) Urine Protein 1+ (Negative) H Urine Ketones 1+ (Negative) H Urine Blood 3+ /uL (Negative) H Urine Nitrite Negative (Negative) Urine Bilirubin Negative (Negative) Urine Urobilinogen Normal mg/dL (Negative) Urine Leukocyte Esterase Trace /uL (Negative) Urine RBC 31 /hpf (0 - 4) Urine Microscopic WBC 5 /HPF (0-5) Urine Squamous Epithelial Cells None seen /hpf (<5) Urine Bacteria Few /hpf (None Seen) H Urine Mucus Few (None Seen) Urine Glucose Normal mg/dL (Normal) Microbiology Microbiology Date/Time Source Procedure Growth Status 09/04/24 01:56 Blood Blood Culture - Preliminary NO GROWTH AFTER 24 HOURS OF INCUBATION. Resulted Labs and/or images reviewed: Labs reviewed by me, Image(s) reviewed by me Assessment/Plan Assessment/Plan Impression: -acute hypoxic respiratory failure -community-acquired pneumonia, probable Gram-positive/Gram-negative etiology -metabolic encephalopathy secondary to acute infection -primary hypertension -? Dementia -hypokalemia -AFib with RVR Plan: Events: Patient converted to AFib with RVR today. Noted paroxysmal atrial fibrillation yesterday evening. Patient was asymptomatic with blood pressure remaining within normal limits. Repeat x-ray with persistent right lower lung pneumonia -IV metoprolol tartrate 2.5 mg x 1 -echocardiogram -start Lopressor 25 mg p.o. b.i.d. -continue antibiotic therapy with azithromycin and Rocephin -bronchodilators -PUD, DVT prophylaxis -IV hydration -potassium replacement -repeat labs and x-ray in a.m. Total time spent with patient discussing and formulating plan of care: 35 minutes. This medical document was created using an electronic medical record system with [employer] dictation system. Although this document has been carefully reviewed, there may still be some phonetic and typographical errors. These areas are purely typographical due to imperfections of the software programs, and do not reflect any compromise in the patient's medical care. Plan discussed with: Patient, Other (RN) My Orders Orders - REJI MATIAS NP Procedure Category Date Status Time Chest Xray 1 View XY 09/05/24 Resulted 10:18 Sod Chl 0.45% (Sodium PHA 09/05/24 In Process Chloride 0.45% Via 10:30 Basic Metabolic Panel LAB 09/06/24 Verified 04:00 Complete Blood Count LAB 09/06/24 Verified 04:00 Pt Request For Service PT 09/05/24 Logged 10:18 Echo 2d Mode Cardiac US 09/05/24 Logged DOP 12:44 Electrocardigram EKG 09/05/24 Logged 12:44 Electrocardigram EKG 09/05/24 Logged 13:44 Metoprolol Tartrate PHA 09/05/24 In Process Tablet (Lopressor Ta 22:00 Date of Service: Sep 05, 2024 Billing Provider: REJI MATIAS NP Common Visit Codes: [id number] CARE 30-74 MIN REJI MATIAS NP Sep 05, 2024 13:02
[2024-09-05] MEDS: METOPROLOL TARTRATE 1MG/1ML-5ML VIAL IV ONE (13:12)
[2024-09-05] MEDS: SOD CHL 0.45% 1,000 ML IV SCH (15:41)
--- NOTE | 2024-09-05 18:38 | DVHINCON2 ---
Date Seen: Sep 05, 2024 Referring Physician TEODORO Neri Reason for Consultation New onset AFib with RVR History of Present Illness This is a 79-year-old female patient who presents to the emergency room with chief complaint of altered level of mentation. At the time of assessment, the patient is alert to self and place. Patient's son who was at bedside is able to provide an accurate history of events that led to emergency room arrival. According to the patient's son, the patient was brought to the emergency yesterday for altered level of consciousness. At this time, cardiology has been consulted for new onset of atrial fibrillation. An initial twelve lead electr ocardiogram that was done in the emergency room on arrival reveals sinus tachycardia with PACs. Cardiac monitoring reviewed and reveals episodes of atrial fibrillation with rapid ventricular rate. Nurse unable to capture atrial fibrillation on twelve lead electrocardiogram. By the time of assessment, the patient was back in a normal sinus rhythm. The patient denies any cardiac sy mptoms at time of assessment. Significant past medical history includes hypertension. The patient's son also mentions that the patient has had more frequent forgetfulness over the last few years. She has never been formally diagnosed with dementia. Past Medical History Past medical history reviewed. No other significant than mentioned above. Past Surgical History Denies Family History: Patient reports no known family medical history. Family History Family history reviewed. Social History Denies the use of tobacco, alcohol or illicit drugs. Allergies: Coded Allergies: NO KNOWN ALLERGIES (Unverified , 03/07/16) Home Meds Discontinued Reported Medications Lisinopril (Lisinopril) Unknown Strength Tab, PO DAILY, TAB 06/29/17 Home Meds Home medications reviewed. Current Medications Current Medications Medications (Trade) Dose Ordered Sig/Jose Route PRN Reason Start Time Stop Time Status Last Admin Ceftriaxone Sodium 50 ml @ 100 mls/hr DAILY@09 IV 09/05/24 09:00 09/05/24 09:00 Azithromycin 250 ml @ 125 mls/hr DAILY IV 09/05/24 10:00 09/05/24 10:00 Tamsulosin HCl (Flomax) 0.4 mg DAILY PO 09/05/24 10:00 Sodium Chloride 1,000 ml @ 75 mls/hr [id number] IV 09/05/24 10:30 09/05/24 15:41 Metoprolol Tartrate (Lopressor Tablet) 25 mg BID PO 09/05/24 22:00 Review of Systems Constitutional: No symptom reported Ears, Nose, & Throat: No symptom reported Eyes: No symptom reported Neurological: Altered level of mentation Pulmonary/Respiratory: No symptoms reported Cardiovascular: No symptom reported Gastrointestinal: No symptom reported Genitourinary: No symptom reported Musculoskeletal: No symptom reported Skin: No symptom reported Psychiatric: No symptom reported Endocrine: No symptom reported Hematologic/Lymphatic: No symptom reported Vital Signs Vital Signs Date Time Temp Pulse Resp B/P (MAP) Pulse Ox O2 Delivery O2 Flow Rate FiO2 09/05/24 16:48 98.6 115 18 140/64 (89) 93 98.6 09/05/24 10:22 Room Air* 0 21 Physical Exam General Appearance: Cooperative. Well-developed. Well-nourished. No acute distress. Pulmonary/Respiratory: Clear, bilateral breaths sounds. Cardiovascular/Chest: Regular rate and rhythm. Peripheral Pulses: 2+ Radial (R). 2+ Radial (L). 2+ Pedal (R). 2+ Pedal (L) Abdominal Exam: Normal bowel sounds. Ankle Exam: Negative ankle edema Lower extremities: Negative lower extremity edema Neuro/Mental Status: A/OX2, confused Thoughts/Psych: Appropriate mood and affect. Appearance: No acute distress. Skin Exam: Normal inspection. Normal color. Warm and dry. Labs/Diagnostic Data Labs Test 09/05/24 08:24 09/05/24 05:46 09/04/24 10:17 09/04/24 02:39 Range/Units Urine Color Yellow Yellow Urine Clarity Clear Clear Urine pH 5.5 5.0-9.0 Urine Specific [place] 1.019 1.001-1.035 Urine Protein 1+ H Negative Urine Ketones 1+ H Negative Urine Blood 3+ H Negative /uL Urine Nitrite Negative Negative Urine Bilirubin Negative Negative Urine Urobilinogen Normal Negative mg/dL Urine Leukocyte Esterase Trace Negative /uL Urine RBC 31 0 - 4 /hpf Urine Microscopic WBC 5 0-5 /HPF Urine Squamous Epithelial Cells None seen <5 /hpf Urine Bacteria Few H None Seen /hpf Urine Mucus Few None Seen Urine Glucose Normal Normal mg/dL White Blood Count 10.8 # 4.4-10.8 10^3/uL Red Blood Count 4.06 4.0-5.20 10^6/uL Hemoglobin 12.7 12.2-16.2 g/dL Hematocrit 37.2 36.0-46.0 % Mean Corpuscular Volume 91.6 80.0-100.0 fL Mean Corpuscular Hemoglobin 31.2 28.0-32.0 pg Mean Corpuscular Hemoglobin Concent 34.0 32.0-36.0 g/dL Red Cell Distribution Width 13.9 11.8-14.3 % Platelet Count 128 L 140-450 10^3/uL Mean Platelet Volume 7.9 6.9-10.8 fL Neutrophils (%) (Auto) 89.3 H 37.0-80.0 % Lymphocytes (%) (Auto) 8.3 L 10.0-50.0 % Monocytes (%) (Auto) 2.2 0.0-12.0 % Eosinophils (%) (Auto) 0.0 0.0-7.0 % Basophils (%) (Auto) 0.2 0.0-2.0 % Neutrophils # (Auto) 9.6 H 1.6-8.6 10 ^3/uL Lymphocytes # (Auto) 0.9 0.4-5.4 10 ^3/uL Monocytes # (Auto) 0.2 0-1.3 10 ^3/uL Eosinophils # (Auto) 0 0-0.8 10 ^3/uL Basophils # (Auto) 0 0-0.2 10 ^3/uL Nucleated Red Blood Cells 0.0 % Sodium Level 138 136-145 mmol/L Potassium Level 4.0 3.5-5.1 mmol/L Chloride Level 105 98-107 mmol/L Carbon Dioxide Level 21 20-31 mmol/L Anion Gap 12 5-15 Blood Urea Nitrogen 28 H 9-23 mg/dL Creatinine 1.35 H 0.550-1.02 mg/dL Glomerular Filtration Rate Calc 40 >90 mL/min BUN/Creatinine Ratio 20.7 H 10.0-20.0 Serum Glucose 89 74-106 mg/dL Calcium Level 8.6 L 8.7-10.4 mg/dL Total Bilirubin 0.8 0.2-1.0 mg/dL Aspartate Amino Transferase (AST) 35 13-40 U/L Alanine Aminotransferase (ALT) 17 7-40 U/L Alkaline Phosphatase 56 46-116 U/L Total Protein 6.2 5.7-8.2 g/dL Albumin 3.6 3.2-4.8 g/dL Thyroid Stimulating Hormone (TSH) 1.44 0.55-4.78 uIU/mL POC Glucose 140 H 70-106 mg/dl Troponin I High Sensitivity 7 </=34 ng/L Test 09/04/24 01:56 Range/Units D-Dimer, Quantitative 0.73 H 0.0-0.49 mg/L FEU Lactic Acid Level 1.7 0.4-2.0 mmol/L Magnesium Level 2.0 1.6-2.6 mg/dL Plasma/Serum Blood Alcohol < 3.0 <10 mg/dL Microbiology Date/Time Source Procedure Growth Status 09/04/24 01:56 Blood Blood Culture - Preliminary NO GROWTH AFTER 24 HOURS OF INCUBATION. Resulted Assessment Atrial fibrillation with rapid ventricular response, newly diagnosed, now in normal sinus rhythm Rule out structural heart disease Hypertension Pneumonia Acute kidney injury ?Dementia Plan/Recommendation We will continue with the following plan/recommendations (Dr. Neil): * Transthoracic echocardiogram to evaluate cardiac function * [id number] VASc score: 4 points, HAS-BLED score: 1 point * Initiate therapeutic Lovenox (monitor Plt count), transition to NOAC upon D/C * Beta-ger for rate control, up titrate as tolerated * Can consider oral antiarrhythmic agent amiodarone * Monitor and replete electrolytes as needed * Close Cardiac surveillance Patient seen and examined bedside with . She is now in normal sinus rhythm on playground monitor. She denies any cardiac symptoms. Thank you for allowing us to care for this patient. Please call with any questions or concerns. Critical care time spent: 40 minutes This medical document was created using an electronic medical record system with voice recognition software and computerized dictation system. Although this document has been carefully reviewed, there might still be some phonetic and typographical errors. Occasional wrong-word or ``sound-alike substitutions may have occurred due to the inherent limitations of voice recognition software. These areas are purely typographical due to imperfections of the software programs and do not reflect any compromise in the patient's medical care. Please read the chart carefully and recognize, using context, where these substitutions have occurred. Plan discussed with: Patient, Son NYHA Physical activity limitations: NA Date of Service: Sep 05, 2024 Billing Provider: YASMEEN VELASQUEZ Cardiology Common Codes: [id number] INP/OBS CARE (High) Cardiology Consultation Codes: [id number] CONSULT <45MIN YASMEEN VELASQUEZ [employer] TECHNICIAN Sep 05, 2024 18:38
[2024-09-05] MEDS: ENOXAPARIN SOD 80 MG/0.8ML SYRINGE SC SCH (21:24)
[2024-09-05] MEDS: METOPROLOL TARTRATE 25 MG TAB PO SCH (21:25)
[2024-09-06] VITALS (11 sets, daily range): BP systolic 114–144; BP diastolic 76–103; PULSE 80–105; RESP 16–20; TEMP 97.7–99.5; O2SAT 94–99
--- NOTE | 2024-09-06 12:43 | DVHPN2 ---
Subjective The patient is seen and examined at bedside. Still complain of shortness for breath. Reviewed: Care Plan, H&P, Medications Changes from previous H/P or p: No Changes General: Per HPI Objective Vitals Vital Signs Date Time Temp Pulse Resp B/P (MAP) Pulse Ox O2 Delivery O2 Flow Rate FiO2 09/06/24 10:12 80 137/86 09/06/24 09:00 97.9 20 96 97.9 09/06/24 08:00 Room Air* 0 21 Intake/Output Intake and Output 09/06/24 07:00 Intake Total 1150 ml Output Total 600 ml Balance 550 ml Intake Oral 850 ml IV Total 300 ml Output Urine Total 600 ml General Appearance: Alert, Cooperative, mild distress, Other (Encephalopathic) HEENT: Atraumatic, PERRLA Lungs: Normal air movement, Other (Rhonchi to right lower lobe) Cardiovascular: Normal S1, Normal S2 Abdomen: Normal bowel sounds, Soft, No tenderness, No hepatospenomegaly, No masses Genitourinary: No Apparent Abnormalities Musculoskeletal: Normal sensory function, Normal motor function Skin: Dry, Intact Psych/Mental Status: Mental status NL, Mood NL Medications Current Medications Medications Dose Ordered Sig/Jose Route Start Time Stop Time Status Last Admin Dose Admin Ceftriaxone Sodium 50 ml @ 100 mls/hr DAILY@09 IV 09/05/24 09:00 09/06/24 10:10 100 MLS/HR Azithromycin 250 ml @ 125 mls/hr DAILY IV 09/05/24 10:00 09/06/24 10:11 125 MLS/HR Albuterol 2.5 mg Q6HPRN PRN NEB 09/04/24 04:30 Ondansetron HCl 4 mg Q4HP PRN IV 09/04/24 04:30 Acetaminophen 650 mg Q6HP PRN PO 09/04/24 04:30 Nitroglycerin 0.4 mg Q5MINP PRN SL 09/04/24 04:30 Morphine Sulfate 2 mg Q30M PRN IV 09/04/24 04:30 Tamsulosin HCl 0.4 mg DAILY PO 09/05/24 10:00 09/06/24 10:12 0.4 MG Sodium Chloride 1,000 ml @ 75 mls/hr [id number] IV 09/05/24 10:30 09/06/24 01:10 75 MLS/HR Metoprolol Tartrate 25 mg BID PO 09/05/24 22:00 09/06/24 10:12 25 MG Enoxaparin Sodium 70 mg Q12HR SC 09/05/24 22:00 09/06/24 10:12 70 MG Laboratory Results Laboratory Tests 09/05/24 05:46 Urinalysis Test 09/05/24 08:24 Urine Color Yellow (Yellow) Urine Clarity Clear (Clear) Urine pH 5.5 (5.0-9.0) Urine Specific [place] 1.019 (1.001-1.035) Urine Protein 1+ (Negative) H Urine Ketones 1+ (Negative) H Urine Blood 3+ /uL (Negative) H Urine Nitrite Negative (Negative) Urine Bilirubin Negative (Negative) Urine Urobilinogen Normal mg/dL (Negative) Urine Leukocyte Esterase Trace /uL (Negative) Urine RBC 31 /hpf (0 - 4) Urine Microscopic WBC 5 /HPF (0-5) Urine Squamous Epithelial Cells None seen /hpf (<5) Urine Bacteria Few /hpf (None Seen) H Urine Mucus Few (None Seen) Urine Glucose Normal mg/dL (Normal) Microbiology Microbiology Date/Time Source Procedure Growth Status 09/04/24 01:56 Blood Blood Culture - Preliminary NO GROWTH AFTER 48 HOURS OF INCUBATION. Resulted Labs and/or images reviewed: Labs reviewed by me Assessment/Plan Assessment/Plan -acute hypoxic respiratory failure -community-acquired pneumonia, probable Gram-positive/Gram-negative etiology -metabolic encephalopathy secondary to acute infection -primary hypertension -? Dementia -hypokalemia -AFib with RVR Plan: Continuing current management. Continuing with metoprolol. Continuing with nebulizer Continuing with IV antibiotic Rocephin and Zithromax. Replace electrolytes This medical document was created using an electronic medical record system with [employer] direct computerized dictation system. Although this document has been carefully reviewed, there may still be some phonetic and typographical errors. These areas are purely typographical due to imperfections of the software programs, and do not reflect any compromise in the patient's medical care. Plan discussed with: Patient Date of Service: Sep 06, 2024 Billing Provider: SAMANTHA CONTRERAS MD Common Visit Codes: [id number] INP/OBS CARE(HIGH) SAMANTHA CONTRERAS MD Sep 06, 2024 12:43
[2024-09-06 13:32] LABS: Basophils # (auto) 0 10 ^3/uL (0-0.2); Basophils % (auto) 0.2 % (0.0-2.0); Chloride 104 mmol/L (98-107); Eosinophils # (auto) 0 10 ^3/uL (0-0.8); Eosinophils % (auto) 0.1 % (0.0-7.0); Hematocrit 37.2 % (36.0-46.0); Hemoglobin 12.4 g/dL (12.2-16.2); Lymphocytes # (auto) 0.7 10 ^3/uL (0.4-5.4); Lymphocytes % (auto) 8.6 % (10.0-50.0); Mean Corpuscular Hemoglobin 31.2 pg (28.0-32.0); Mean Corpuscular Hgb Conc. 33.4 g/dL (32.0-36.0); Mean Corpuscular Volume 93.3 fL (80.0-100.0); Monocytes # (auto) 0.3 10 ^3/uL (0-1.3); Monocytes % (auto) 3.5 % (0.0-12.0); Neutrophils # (auto) 7.4 10 ^3/uL (1.6-8.6); Neutrophils % (auto) 87.6 % (37.0-80.0); Nucleated Red Blood Cells % 0.2 %; Platelet Count (auto) 126 10^3/uL (140-450); Potassium 3.7 mmol/L (3.5-5.1); Red Blood Cells 3.99 10^6/uL (4.0-5.20); Red Cell Distribution Width 13.8 % (11.8-14.3); Sodium 137 mmol/L (136-145); White Blood Cell 8.5 10^3/uL (4.4-10.8)
[2024-09-06 13:33] LABS: Anion Gap 9 (5-15); Carbon Dioxide 24 mmol/L (20-31)
[2024-09-06 13:38] LABS: Glucose 89 mg/dL (74-106); Triglycerides 95 mg/dL (< 150)
[2024-09-06 13:39] LABS: BUN/Creatinine Ratio 19.4 (10.0-20.0); Blood Urea Nitrogen 21 mg/dL (9-23); Magnesium 1.9 mg/dL (1.6-2.6)
[2024-09-06 13:41] LABS: Cholesterol 196 mg/dL (< 200)
[2024-09-06 13:46] LABS: Calcium 8.6 mg/dL (8.7-10.4); HDL Cholesterol 65 mg/dL (40-59); LDL Cholesterol 102 mg/dL (< 100)
--- NOTE | 2024-09-06 19:14 | DVHINCON2 ---
Date Seen: Sep 05, 2024 Referring Physician TEODORO Neri Reason for Consultation New onset AFib with RVR History of Present Illness This is a 79-year-old female with a PMH of HTN who presents to the emergency room with chief complaint of altered level of mentation. At the time of assessment, the patient is alert to self and place. Patient's son who was at bedside is able to provide an accurate history of events that led to emergency room arrival. According to the patient's son, the patient was brought to the emergency yesterday for altered level of consciousness. At this time, cardiology has been consulted for new onset of atrial fibrillation. An initial twelve lead electrocardiogram that was done in the emergency room on arrival reveals sinus tachycardia with PACs. Cardiac monitoring reviewed and reveals episodes of atrial fibrillation with rapid ventricular rate. Nurse unable to capture atrial fibrillation on twelve lead electrocardiogram. By the time of assessment, the patient was back in a normal sinus rhythm. The patient denies any cardiac sym ptoms at time of assessment. The patient's son also mentions that the patient has had more frequent forgetfulness over the last few years. She has never been formally diagnosed with dementia. CT head showed no acute intracranial abnormality. Chest x-ray showed medial right lung base pneumonia. Family History: Patient reports no known family medical history. Allergies: Coded Allergies: NO KNOWN ALLERGIES (Unverified , 03/07/16) Home Meds Discontinued Reported Medications Lisinopril (Lisinopril) Unknown Strength Tab, PO DAILY, TAB 06/29/17 Current Medications Current Medications Medications (Trade) Dose Ordered Sig/Jose Route PRN Reason Start Time Stop Time Status Last Admin Metoprolol Tartrate (Lopressor Tablet) 25 mg BID PO 09/05/24 22:00 09/06/24 10:12 Enoxaparin Sodium (Lovenox) 70 mg Q12HR SC 09/05/24 22:00 09/06/24 10:12 Review of Systems Constitutional: No symptom reported Ears, Nose, & Throat: No symptom reported Eyes: No symptom reported Neurological: Altered level of mentation Pulmonary/Respiratory: No symptoms reported Cardiovascular: No symptom reported Gastrointestinal: No symptom reported Genitourinary: No symptom reported Musculoskeletal: No symptom reported Skin: No symptom reported Psychiatric: No symptom reported Endocrine: No symptom reported Hematologic/Lymphatic: No symptom reported Vital Signs Vital Signs Date Time Temp Pulse Resp B/P (MAP) Pulse Ox O2 Delivery O2 Flow Rate FiO2 09/06/24 10:12 80 137/86 09/06/24 09:00 97.9 20 96 97.9 09/06/24 08:00 Room Air* 0 21 Physical Exam GENERAL: Alert and oriented x2. Confused. EYES: PERRL, EOMI. Anicteric. HENT: Moist mucous membranes. LUNGS: Clear to auscultation bilaterally. CARDIOVASCULAR: Regular rate and rhythm. ABDOMEN: Soft, nontender and nondistended. EXTREMITIES: No edema. NEUROLOGIC: No focal neurological deficits. SKIN: Warm, dry. Labs/Diagnostic Data Labs Test 09/05/24 08:24 09/05/24 05:46 09/04/24 10:17 09/04/24 02:39 Range/Units Urine Color Yellow Yellow Urine Clarity Clear Clear Urine pH 5.5 5.0-9.0 Urine Specific [place] 1.019 1.001-1.035 Urine Protein 1+ H Negative Urine Ketones 1+ H Negative Urine Blood 3+ H Negative /uL Urine Nitrite Negative Negative Urine Bilirubin Negative Negative Urine Urobilinogen Normal Negative mg/dL Urine Leukocyte Esterase Trace Negative /uL Urine RBC 31 0 - 4 /hpf Urine Microscopic WBC 5 0-5 /HPF Urine Squamous Epithelial Cells None seen <5 /hpf Urine Bacteria Few H None Seen /hpf Urine Mucus Few None Seen Urine Glucose Normal Normal mg/dL White Blood Count 10.8 # 4.4-10.8 10^3/uL Red Blood Count 4.06 4.0-5.20 10^6/uL Hemoglobin 12.7 12.2-16.2 g/dL Hematocrit 37.2 36.0-46.0 % Mean Corpuscular Volume 91.6 80.0-100.0 fL Mean Corpuscular Hemoglobin 31.2 28.0-32.0 pg Mean Corpuscular Hemoglobin Concent 34.0 32.0-36.0 g/dL Red Cell Distribution Width 13.9 11.8-14.3 % Platelet Count 128 L 140-450 10^3/uL Mean Platelet Volume 7.9 6.9-10.8 fL Neutrophils (%) (Auto) 89.3 H 37.0-80.0 % Lymphocytes (%) (Auto) 8.3 L 10.0-50.0 % Monocytes (%) (Auto) 2.2 0.0-12.0 % Eosinophils (%) (Auto) 0.0 0.0-7.0 % Basophils (%) (Auto) 0.2 0.0-2.0 % Neutrophils # (Auto) 9.6 H 1.6-8.6 10 ^3/uL Lymphocytes # (Auto) 0.9 0.4-5.4 10 ^3/uL Monocytes # (Auto) 0.2 0-1.3 10 ^3/uL Eosinophils # (Auto) 0 0-0.8 10 ^3/uL Basophils # (Auto) 0 0-0.2 10 ^3/uL Nucleated Red Blood Cells 0.0 % Sodium Level 138 136-145 mmol/L Potassium Level 4.0 3.5-5.1 mmol/L Chloride Level 105 98-107 mmol/L Carbon Dioxide Level 21 20-31 mmol/L Anion Gap 12 5-15 Blood Urea Nitrogen 28 H 9-23 mg/dL Creatinine 1.35 H 0.550-1.02 mg/dL Glomerular Filtration Rate Calc 40 >90 mL/min BUN/Creatinine Ratio 20.7 H 10.0-20.0 Serum Glucose 89 74-106 mg/dL Calcium Level 8.6 L 8.7-10.4 mg/dL Total Bilirubin 0.8 0.2-1.0 mg/dL Aspartate Amino Transferase (AST) 35 13-40 U/L Alanine Aminotransferase (ALT) 17 7-40 U/L Alkaline Phosphatase 56 46-116 U/L Total Protein 6.2 5.7-8.2 g/dL Albumin 3.6 3.2-4.8 g/dL Thyroid Stimulating Hormone (TSH) 1.44 0.55-4.78 uIU/mL POC Glucose 140 H 70-106 mg/dl Troponin I High Sensitivity 7 </=34 ng/L Test 09/04/24 01:56 Range/Units D-Dimer, Quantitative 0.73 H 0.0-0.49 mg/L FEU Lactic Acid Level 1.7 0.4-2.0 mmol/L Magnesium Level 2.0 1.6-2.6 mg/dL Plasma/Serum Blood Alcohol < 3.0 <10 mg/dL Microbiology Date/Time Source Procedure Growth Status 09/04/24 01:56 Blood Blood Culture - Preliminary NO GROWTH AFTER 48 HOURS OF INCUBATION. Resulted Assessment Atrial fibrillation with rapid ventricular response, newly diagnosed, now in normal sinus rhythm. Rule out structural heart disease. Hypertension. Pneumonia. Acute kidney injury. ?Dementia. Plan/Recommendation I agree with your ongoing assessment and care of plan. Patient has been seen by Reema Brice NP on my behalf, her and I discussed the plan with the patient. Transthoracic echocardiogram to evaluate cardiac function. [id number] VASc score: 4 points, HAS-BLED score: 1 point. Initiate therapeutic Lovenox (monitor Plt count), transition to NOAC upon D/C. Beta-ger for rate control, up titrate as tolerated. Can consider oral antiarrhythmic agent amiodarone. Monitor and replete electrolytes as needed. Close Cardiac surveillance. Additional plan as per the hospital course. Plan discussed with: Patient NYHA Physical activity limitations: NA Date of Service: Sep 06, 2024 Billing Provider: LIVIA VAZQUEZ MD Cardiology Common Codes: 27067-DGPGPMR INP/OBS CARE (High) Cardiology Consultation Codes: [id number] CONSULT <45MIN LIVIA VAZQUEZ MD Sep 06, 2024 12:34
--- NOTE | 2024-09-06 20:07 | DVHSR ---
APPROVED REPORT EXAM: Two-dimensional and M-mode echocardiogram with Doppler and color Doppler. Blood Pressure: 128/79 mmHg INDICATION Afib with RVR RISK FACTORS Height: 5'6", Weight: 156 DIMENSIONS LVDd4.4 (3.8-5.7cm)LA (2D) (1.9-4.0cm)Aortic Root3.6 (2.0-3.7cm) LVDs3.2 (2.5-4.0cm)LA (MM) (1.9-4.0cm)Aortic Cusp Exc1.3 (1.5-2.0cm) EF (%) 50.0 (55-70%)Rt. Atrium (1.9-4.0cm)Asc. Aorta cm IVSd1.0 (0.7-1.1cm)RV (D) (1.8-2.4cm) PWd1.0 (0.7-1.1cm) Mitral Valve MitralMitral Stenosis E wave0.51m/sMV Mean GR.mmHg A wave0.75m/sMV Peak GR.mmHg E/A ratio0.72D MVAcm2 DECEL [id number] 1/2 [place] Aortic Valve Aortic ValveAortic Stenosis V11.21m/Ivory Mean GR.5mmHg V21.39m/Ivory Peak GR.8mmHg LVOT Diameter2.3 (1.8-2.4cm)Doppler AVA3.61cm2 AI P 1/2 Hjro008.36ms Pulmonic Valve V20.79m/s Other Information Technically limited study due to body habitus, patient sitting up. Conclusion MODERATE DEGREE LVH AND MODERATE DEGREE LV DIASTOLIC DYSFUNCTION LV EF IS 60% MODERATELY CALCIFIED AORTIC LEAFLET MODERATE DEGREE AORTIC REGURGITATION NORMAL MV,TV AND PV NO EFFUSION NORMAL RV FUNCTION
--- NOTE | 2024-09-06 21:20 | DVHPN2 ---
Progress Note - Dictate Date Seen: Sep 06, 2024 Medical Necessity Reason Pt with a Central, PICC or Fol: No Subjective Patient was seen and evaluated in follow up. Patient is resting in bed. Echocardiogram showed an EF of 60%. 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 Telemetry reviewed. vital signs Vital Sign Date Time Temp Pulse Resp B/P (MAP) Pulse Ox O2 Delivery O2 Flow Rate FiO2 09/06/24 19:16 94 Room Air* 0 21 09/06/24 17:05 98.7 87 18 144/85 (104) 98.7 Total Intake and Output 09/05/24 09/05/24 09/06/24 15:00 23:00 07:00 Intake Total 300 ml 850 ml Output Total 600 ml Balance 300 ml 250 ml medications Current Medications Medications Dose Ordered Sig/Jose Route Start Time Stop Time Status Last Admin Dose Admin Ceftriaxone Sodium 50 ml @ 100 mls/hr DAILY@09 IV 09/05/24 09:00 09/06/24 10:10 100 MLS/HR Azithromycin 250 ml @ 125 mls/hr DAILY IV 09/05/24 10:00 09/06/24 10:11 125 MLS/HR Albuterol 2.5 mg Q6HPRN PRN NEB 09/04/24 04:30 Ondansetron HCl 4 mg Q4HP PRN IV 09/04/24 04:30 Acetaminophen 650 mg Q6HP PRN PO 09/04/24 04:30 Nitroglycerin 0.4 mg Q5MINP PRN SL 09/04/24 04:30 Morphine Sulfate 2 mg Q30M PRN IV 09/04/24 04:30 Tamsulosin HCl 0.4 mg DAILY PO 09/05/24 10:00 09/06/24 10:12 0.4 MG Sodium Chloride 1,000 ml @ 75 mls/hr [id number] IV 09/05/24 10:30 09/06/24 13:10 75 MLS/HR Metoprolol Tartrate 25 mg BID PO 09/05/24 22:00 09/06/24 10:12 25 MG Enoxaparin Sodium 70 mg Q12HR SC 09/05/24 22:00 09/06/24 10:12 70 MG objective GENERAL: Alert and oriented x2. Confused. EYES: PERRL, EOMI. Anicteric. HENT: Moist mucous membranes. LUNGS: Clear to auscultation bilaterally. CARDIOVASCULAR: Regular rate and rhythm. ABDOMEN: Soft, nontender and nondistended. EXTREMITIES: No edema. NEUROLOGIC: No focal neurological deficits. SKIN: Warm, dry. laboratory and microbiology Laboratory Tests 09/06/24 12:55 Test 09/06/24 12:55 Range/Units Serum Glucose 89 74-106 mg/dL Problem List Atrial fibrillation with rapid ventricular response, newly diagnosed, now in normal sinus rhythm. Rule out structural heart disease. Hypertension. Pneumonia. Acute kidney injury. ?Dementia. Assessment/Plan Continued all current supportive medical care. IV antibiotics as ordered. DVT prophylactics. Metoprolol. Morphine for pain management. Additional plan as per the hospital course. Plan discussed with: Other LIVIA VAZQUEZ MD Sep 06, 2024 20:48
[2024-09-07] VITALS (9 sets, daily range): BP systolic 114–156; BP diastolic 75–96; PULSE 79–107; RESP 17–20; TEMP 97.9–98.6; O2SAT 94–98
[2024-09-07] MEDS ORDERED: LORazepam 0.5 MG TAB PO PRN (12:15)
--- NOTE | 2024-09-07 12:43 | DVHPN2 ---
Subjective The patient is seen and examined at bedside. Still complain of shortness for breath. Reviewed: Care Plan, H&P, Medications Changes from previous H/P or p: No Changes General: Per HPI Objective Vitals Vital Signs Date Time Temp Pulse Resp B/P (MAP) Pulse Ox O2 Delivery O2 Flow Rate FiO2 09/07/24 09:00 09/07/24 08:30 Room Air* 0 21 09/07/24 05:00 97.9 82 17 98 97.9 Intake/Output Intake and Output 09/07/24 07:00 Intake Total 540 ml Output Total 1075 ml Balance -535 ml Intake Oral 540 ml Output Urine Total 1075 ml General Appearance: Alert, Cooperative, mild distress, Other (Encephalopathic) HEENT: Atraumatic, PERRLA Lungs: Normal air movement, Other (Rhonchi to right lower lobe) Cardiovascular: Normal S1, Normal S2 Abdomen: Normal bowel sounds, Soft, No tenderness, No hepatospenomegaly, No masses Genitourinary: No Apparent Abnormalities Musculoskeletal: Normal sensory function, Normal motor function Skin: Dry, Intact Psych/Mental Status: Mental status NL, Mood NL Medications Current Medications Medications Dose Ordered Sig/Jose Route Start Time Stop Time Status Last Admin Dose Admin Ceftriaxone Sodium 50 ml @ 100 mls/hr DAILY@09 IV 09/05/24 09:00 09/06/24 10:10 100 MLS/HR Azithromycin 250 ml @ 125 mls/hr DAILY IV 09/05/24 10:00 09/06/24 10:11 125 MLS/HR Albuterol 2.5 mg Q6HPRN PRN NEB 09/04/24 04:30 Ondansetron HCl 4 mg Q4HP PRN IV 09/04/24 04:30 Acetaminophen 650 mg Q6HP PRN PO 09/04/24 04:30 Nitroglycerin 0.4 mg Q5MINP PRN SL 09/04/24 04:30 Morphine Sulfate 2 mg Q30M PRN IV 09/04/24 04:30 Tamsulosin HCl 0.4 mg DAILY PO 09/05/24 10:00 09/06/24 10:12 0.4 MG Sodium Chloride 1,000 ml @ 75 mls/hr [id number] IV 09/05/24 10:30 09/06/24 13:10 75 MLS/HR Metoprolol Tartrate 25 mg BID PO 09/05/24 22:00 09/06/24 10:12 25 MG Enoxaparin Sodium 70 mg Q12HR SC 09/05/24 22:00 09/06/24 10:12 70 MG Lorazepam 1 mg Q6HP PRN PO 09/07/24 12:15 Laboratory Results Laboratory Tests 09/06/24 12:55 Chemistry Test 09/06/24 12:55 Calcium Level 8.6 mg/dL (8.7-10.4) L Magnesium Level 1.9 mg/dL (1.6-2.6) Lipid panel Test 09/06/24 12:55 Cholesterol Level 196 mg/dL (< 200) HDL Cholesterol 65 mg/dL (40-59) H Triglycerides Level 95 mg/dL (< 150) HgA1c, TSH Test 09/06/24 12:55 Hemoglobin A1c 5.3 % A1C (<5.7) Urinalysis Test 09/05/24 08:24 Urine Color Yellow (Yellow) Urine Clarity Clear (Clear) Urine pH 5.5 (5.0-9.0) Urine Specific [place] 1.019 (1.001-1.035) Urine Protein 1+ (Negative) H Urine Ketones 1+ (Negative) H Urine Blood 3+ /uL (Negative) H Urine Nitrite Negative (Negative) Urine Bilirubin Negative (Negative) Urine Urobilinogen Normal mg/dL (Negative) Urine Leukocyte Esterase Trace /uL (Negative) Urine RBC 31 /hpf (0 - 4) Urine Microscopic WBC 5 /HPF (0-5) Urine Squamous Epithelial Cells None seen /hpf (<5) Urine Bacteria Few /hpf (None Seen) H Urine Mucus Few (None Seen) Urine Glucose Normal mg/dL (Normal) Microbiology Microbiology Date/Time Source Procedure Growth Status 09/05/24 08:24 Voided Urine Urine Culture - Preliminary Resulted 09/04/24 01:56 Blood Blood Culture - Preliminary NO GROWTH AFTER 72 HOURS OF INCUBATION. Resulted Labs and/or images reviewed: Labs reviewed by me Assessment/Plan Assessment/Plan -acute hypoxic respiratory failure -community-acquired pneumonia, probable Gram-positive/Gram-negative etiology -metabolic encephalopathy secondary to acute infection -primary hypertension -? Dementia -hypokalemia -AFib with RVR Plan: Continuing current management. Continuing with metoprolol. Continuing with nebulizer Continuing with IV antibiotic Rocephin and Zithromax. Replace electrolytes This medical document was created using an electronic medical record system with [employer] direct computerized dictation system. Although this document has been carefully reviewed, there may still be some phonetic and typographical errors. These areas are purely typographical due to imperfections of the software programs, and do not reflect any compromise in the patient's medical care. Plan discussed with: Patient My Orders Orders - SAMANTHA CONTRERAS MD Procedure Category Date Status Time Lorazepam Tablet PHA 09/07/24 In Process (Ativan Tablet) 12:15 Date of Service: Sep 07, 2024 Billing Provider: SAMANTHA CONTRERAS MD Common Visit Codes: [id number] INP/OBS CARE(HIGH) SAMANTHA CONTRERAS MD Sep 07, 2024 12:43
[2024-09-07] MEDS: hydrALAZINE HCL 20 MG/ML VL IV PRN (16:03)
--- NOTE | 2024-09-07 23:52 | DVHPN2 ---
Progress Note - Dictate Date Seen: Sep 07, 2024 Medical Necessity Reason Pt with a Central, PICC or Fol: No Subjective Patient was seen and evaluated in follow up. No overnight events. Patient is resting in bed. Sitter is at bedside. Patient's diet has been modified to soft foods due to having a hard time chewing. Telemetry reviewed. vital signs Vital Sign Date Time Temp Pulse Resp B/P (MAP) Pulse Ox O2 Delivery O2 Flow Rate FiO2 09/07/24 16:03 156/107 09/07/24 15:00 81 09/07/24 13:00 98.4 18 98 98.4 09/07/24 10:30 Room Air 0.0 09/07/24 10:30 21 Total Intake and Output 09/06/24 09/06/24 09/07/24 15:00 23:00 07:00 Intake Total 100 ml 440 ml Output Total 650 ml 425 ml Balance 100 ml -210 ml -425 ml medications Current Medications Medications Dose Ordered Sig/Jose Route Start Time Stop Time Status Last Admin Dose Admin Ceftriaxone Sodium 50 ml @ 100 mls/hr DAILY@09 IV 09/05/24 09:00 09/07/24 14:03 100 MLS/HR Azithromycin 250 ml @ 125 mls/hr DAILY IV 09/05/24 10:00 09/07/24 15:26 125 MLS/HR Ondansetron HCl 4 mg Q4HP PRN IV 09/04/24 04:30 Acetaminophen 650 mg Q6HP PRN PO 09/04/24 04:30 Nitroglycerin 0.4 mg Q5MINP PRN SL 09/04/24 04:30 Morphine Sulfate 2 mg Q30M PRN IV 09/04/24 04:30 Tamsulosin HCl 0.4 mg DAILY PO 09/05/24 10:00 09/07/24 14:00 0.4 MG Sodium Chloride 1,000 ml @ 75 mls/hr [id number] IV 09/05/24 10:30 09/06/24 13:10 75 MLS/HR Metoprolol Tartrate 25 mg BID PO 09/05/24 22:00 09/07/24 14:00 25 MG Enoxaparin Sodium 70 mg Q12HR SC 09/05/24 22:00 09/06/24 10:12 70 MG Lorazepam 1 mg Q6HP PRN PO 09/07/24 12:15 Hydralazine HCl 10 mg Q6HP PRN IV 09/07/24 14:30 09/07/24 16:03 10 MG objective GENERAL: Alert and oriented x2. Confused. EYES: PERRL, EOMI. Anicteric. HENT: Moist mucous membranes. LUNGS: Clear to auscultation bilaterally. CARDIOVASCULAR: Regular rate and rhythm. ABDOMEN: Soft, nontender and nondistended. EXTREMITIES: No edema. NEUROLOGIC: No focal neurological deficits. SKIN: Warm, dry. laboratory and microbiology Laboratory Tests 09/06/24 12:55 Test 09/06/24 12:55 Range/Units Serum Glucose 89 74-106 mg/dL Problem List Atrial fibrillation with rapid ventricular response, newly diagnosed, now in normal sinus rhythm. Rule out structural heart disease. Hypertension. Pneumonia. Acute kidney injury. ?Dementia. Assessment/Plan Continued all current supportive medical care. IV antibiotics as ordered. DVT prophylactics. Metoprolol. Morphine for pain management. Additional plan as per the hospital course. Dietary Evaluation Review Recommendations by RD: Protein Supplementation Comments: 1) Initiate Ensure Enlive bid. Liberalize diet to 2g Na. Encourage optimal PO intake. 2) Follow-up with cardiology and pulmonology 3) Continue to monitor I&O, labs, and skin integrity Expected Outcomes/Goals: 1) appetite and labs to improve 2) follow-up in 3-5 days Plan discussed with: Patient LIVIA VAZQUEZ MD Sep 07, 2024 16:28
[2024-09-08] VITALS (10 sets, daily range): BP systolic 133–159; BP diastolic 76–98; PULSE 87–116; RESP 18–20; TEMP 97.7–98.7; O2SAT 94–98
--- NOTE | 2024-09-08 23:52 | DVHPN2 ---
Progress Note - Dictate Date Seen: Sep 08, 2024 Medical Necessity Reason Pt with a Central, PICC or Fol: No Subjective Patient was seen and evaluated in follow up. Sitter is at bedside. Patient stable on room air. Urine and blood cultures show no growth. Telemetry reviewed. vital signs Vital Sign Date Time Temp Pulse Resp B/P (MAP) Pulse Ox O2 Delivery O2 Flow Rate FiO2 09/08/24 22:00 103 133/76 09/08/24 17:03 98.0 20 98 98.0 09/08/24 10:00 Room Air* 0 21 Total Intake and Output 09/07/24 09/07/24 09/08/24 15:00 23:00 07:00 Intake Total 125 ml 950 ml 945 ml Output Total 500 ml 700 ml Balance 125 ml 450 ml 245 ml medications Current Medications Medications Dose Ordered Sig/Jose Route Start Time Stop Time Status Last Admin Dose Admin Ceftriaxone Sodium 50 ml @ 100 mls/hr DAILY@09 IV 09/05/24 09:00 09/08/24 09:51 100 MLS/HR Azithromycin 250 ml @ 125 mls/hr DAILY IV 09/05/24 10:00 09/08/24 09:54 125 MLS/HR Ondansetron HCl 4 mg Q4HP PRN IV 09/04/24 04:30 Acetaminophen 650 mg Q6HP PRN PO 09/04/24 04:30 Nitroglycerin 0.4 mg Q5MINP PRN SL 09/04/24 04:30 Morphine Sulfate 2 mg Q30M PRN IV 09/04/24 04:30 Tamsulosin HCl 0.4 mg DAILY PO 09/05/24 10:00 09/08/24 09:53 0.4 MG Sodium Chloride 1,000 ml @ 75 mls/hr [id number] IV 09/05/24 10:30 09/08/24 01:25 75 MLS/HR Metoprolol Tartrate 25 mg BID PO 09/05/24 22:00 09/08/24 09:53 25 MG Enoxaparin Sodium 70 mg Q12HR SC 09/05/24 22:00 09/08/24 23:38 70 MG Lorazepam 1 mg Q6HP PRN PO 09/07/24 12:15 Hydralazine HCl 10 mg Q6HP PRN IV 09/07/24 14:30 09/08/24 05:10 10 MG objective GENERAL: Alert and oriented x2. Confused. EYES: PERRL, EOMI. Anicteric. HENT: Moist mucous membranes. LUNGS: Clear to auscultation bilaterally. CARDIOVASCULAR: Regular rate and rhythm. ABDOMEN: Soft, nontender and nondistended. EXTREMITIES: No edema. NEUROLOGIC: No focal neurological deficits. SKIN: Warm, dry. laboratory and microbiology Laboratory Tests 09/06/24 12:55 Test 09/06/24 12:55 Range/Units Serum Glucose 89 74-106 mg/dL Problem List Atrial fibrillation with rapid ventricular response, newly diagnosed, now in normal sinus rhythm. Rule out structural heart disease. Hypertension. Pneumonia. Acute kidney injury. ?Dementia. Assessment/Plan Continued all current supportive medical care. IV antibiotics as ordered. DVT prophylactics. Metoprolol. Morphine for pain management. Additional plan as per the hospital course. Dietary Evaluation Review Recommendations by RD: Protein Supplementation Comments: 1) Initiate Ensure Enlive bid. Liberalize diet to 2g Na. Encourage optimal PO intake. 2) Follow-up with cardiology and pulmonology 3) Continue to monitor I&O, labs, and skin integrity Expected Outcomes/Goals: 1) appetite and labs to improve 2) follow-up in 3-5 days Plan discussed with: Patient LIVIA VAZQUEZ MD Sep 08, 2024 23:52
[2024-09-09 08:00] VITALS: PULSE 88; PULSE 99; RESP 18
[2024-09-09 08:45] VITALS: BP 167/97; PULSE 98; RESP 20; TEMP 98.9; O2SAT 99
[2024-09-09 12:55] VITALS: BP 165/89; PULSE 87; RESP 20; TEMP 99; O2SAT 97
[2024-09-09] MEDS ORDERED: AZIT-185 PO (13:07)
--- NOTE | 2024-09-09 22:52 | DVHDS2 ---
Discharge Summary Date of Admission Sep 04, 2024 at 04:25 Date of Discharge: Sep 09, 2024 Admitting Diagnosis -acute hypoxic respiratory failure -community-acquired pneumonia, probable Gram-positive/Gram-negative etiology -metabolic encephalopathy secondary to acute infection -primary hypertension -? Dementia -hypokalemia -AFib with RVR Labs/Diagnostic Data: Laboratory Results Test 09/06/24 12:55 09/05/24 08:24 09/05/24 05:46 09/04/24 10:17 White Blood Count 8.5 10^3/uL (4.4-10.8) Red Blood Count 3.99 10^6/uL (4.0-5.20) Hemoglobin 12.4 g/dL (12.2-16.2) Hematocrit 37.2 % (36.0-46.0) Mean Corpuscular Volume 93.3 fL (80.0-100.0) Mean Corpuscular Hemoglobin 31.2 pg (28.0-32.0) Mean Corpuscular Hemoglobin Concent 33.4 g/dL (32.0-36.0) Red Cell Distribution Width 13.8 % (11.8-14.3) Platelet Count 126 10^3/uL (140-450) Mean Platelet Volume 7.8 fL (6.9-10.8) Neutrophils (%) (Auto) 87.6 % (37.0-80.0) Lymphocytes (%) (Auto) 8.6 % (10.0-50.0) Monocytes (%) (Auto) 3.5 % (0.0-12.0) Eosinophils (%) (Auto) 0.1 % (0.0-7.0) Basophils (%) (Auto) 0.2 % (0.0-2.0) Neutrophils # (Auto) 7.4 10 ^3/uL (1.6-8.6) Lymphocytes # (Auto) 0.7 10 ^3/uL (0.4-5.4) Monocytes # (Auto) 0.3 10 ^3/uL (0-1.3) Eosinophils # (Auto) 0 10 ^3/uL (0-0.8) Basophils # (Auto) 0 10 ^3/uL (0-0.2) Nucleated Red Blood Cells 0.2 % Sodium Level 137 mmol/L (136-145) Potassium Level 3.7 mmol/L (3.5-5.1) Chloride Level 104 mmol/L (98-107) Carbon Dioxide Level 24 mmol/L (20-31) Anion Gap 9 (5-15) Blood Urea Nitrogen 21 mg/dL (9-23) Creatinine 1.08 mg/dL (0.550-1.02) Glomerular Filtration Rate Calc 53 mL/min (>90) BUN/Creatinine Ratio 19.4 (10.0-20.0) Serum Glucose 89 mg/dL (74-106) Hemoglobin A1c 5.3 % A1C (<5.7) Calcium Level 8.6 mg/dL (8.7-10.4) Magnesium Level 1.9 mg/dL (1.6-2.6) Triglycerides Level 95 mg/dL (< 150) Cholesterol Level 196 mg/dL (< 200) LDL Cholesterol 102 mg/dL (< 100) HDL Cholesterol 65 mg/dL (40-59) Urine Color Yellow (Yellow) Urine Clarity Clear (Clear) Urine pH 5.5 (5.0-9.0) Urine Specific [place] 1.019 (1.001-1.035) Urine Protein 1+ (Negative) Urine Ketones 1+ (Negative) Urine Blood 3+ /uL (Negative) Urine Nitrite Negative (Negative) Urine Bilirubin Negative (Negative) Urine Urobilinogen Normal mg/dL (Negative) Urine Leukocyte Esterase Trace /uL (Negative) Urine RBC 31 /hpf (0 - 4) Urine Microscopic WBC 5 /HPF (0-5) Urine Squamous Epithelial Cells None seen /hpf (<5) Urine Bacteria Few /hpf (None Seen) Urine Mucus Few (None Seen) Urine Glucose Normal mg/dL (Normal) Total Bilirubin 0.8 mg/dL (0.2-1.0) Aspartate Amino Transferase (AST) 35 U/L (13-40) Alanine Aminotransferase (ALT) 17 U/L (7-40) Alkaline Phosphatase 56 U/L (46-116) Total Protein 6.2 g/dL (5.7-8.2) Albumin 3.6 g/dL (3.2-4.8) Thyroid Stimulating Hormone (TSH) 1.44 uIU/mL (0.55-4.78) POC Glucose 140 mg/dl (70-106) Test 09/04/24 02:39 09/04/24 01:56 Troponin I High Sensitivity 7 ng/L (</=34) D-Dimer, Quantitative 0.73 mg/L FEU (0.0-0.49) Lactic Acid Level 1.7 mmol/L (0.4-2.0) Plasma/Serum Blood Alcohol < 3.0 mg/dL (<10) Other Laboratory Tests 09/06/24 12:55 Brief Hx & Hospital Course: This is a 79 years old female brought into emergency department because of altered mental status. The patient apparently had altered mental status today prior to coming to hospital. She was urinating on herself. Patient's family smell the urine had a strong odor. Patient was hypoxic and was placed on high- flow oxygen for shot period of time in the emergency department. CT head showed no acute process. The patient was found to have pneumonia with Gram-positive/Gram-positive bacteria. The patient also was empirically treated with urinary tract infection. The patient was put on IV antibiotic with Rocephin 1 g IV q.day., also a Zithromax 500 mg IV q.day.A urine culture had remained negative, no growth for five days. Blood culture is negative. The patient also was found to have atrial fibrillation with RVR. Electrical Appliance Preparer see the patient. Echo was done showed EF of 60% with diastolic dysfunction. Dr. Neil, resident director recommended metoprolol. The patient was started on metoprolol twice per day and she tolerated the medication. Her heart rate is controlled and not in RVR. The resident director did not recommend any further medication except metoprolol. Patient subsequently doing better. She more alert awake. She was not urinated on herself. She able to tolerate diet. I am going to discharge her home today. Advised her to follow up with primary care physician 1-2 weeks. Follow up with resident director per schedule. Activity as tolerated. Diet per home diet. Recommend low-salt low-cholesterol diet. Physical exam: HEENT: Normocephalic atraumatic pupils equal react to light and accommodation. Extraocular muscles intact, conjunctiva pink, oropharynx moist, no thrush, no exudate. Lymphatic: No lymphadenopathy Cardiovascular exam: S1, S2 was heard. No murmurs, rubs, gallops Lung: Clear on auscultation bilaterally, no wheeze, rale, rhonchi. GI: Abdominal soft, nondistended, nontenderness, positive bowel sounds. Extremity: No crepitus, cyanosis, edema. Pedal pulses present bilateral. Full range of motion. Skin: Normal turgor, no rash. Psych: Alert, awake Neurology: No focal deficits, cranial nerve II to XII grossly intact. This medical document was created using an electronic medical record system with [employer] direct computerized dictation system. Although this document has been carefully reviewed, there may still be some phonetic and typographical errors. These areas are purely typographical due to imperfections of the software programs, and do not reflect any compromise in the patient's medical care. Condition at Discharge: Stable Final Diagnosis/Problems List -acute hypoxic respiratory failure -community-acquired pneumonia, probable Gram-positive/Gram-negative etiology -metabolic encephalopathy secondary to acute infection -primary hypertension -? Dementia -hypokalemia -AFib with RVR Discharge Disposition: Home Discharge Instruct/Medications Diet: Cardiac 2g Na,low cholest Activity: No Restrictions, As Tolerated Follow Up/Referral: pcp 1-2 weeks Electrical Appliance Preparer per schedule Medications: Z-Chaz and to finish Metoprolol 25 mg twice per day Discharge Statement: "Patient was advised to return to the ER or call 911 if any headaches, dizziness, shortness of breath, chest pain, abdominal pain, bleeding, fevers, or worsening of medical condition. Patient was counseled about treatment plan, medications, possible side effects, patientverbalized understanding. All questions were answered to the best of my ability. This discharge took greater then 30 minutes in planning, reviewing documentation, counseling the patient, and discussing with other team members." ASSESSMENT ASSESSMENT Assessment PNEUMONIA Date of Service: Sep 09, 2024 Billing Provider: SAMANTHA CONTRERAS MD Common Visit Codes: 02933-GDM/OBS DISCH DAY >30min SAMANTHA CONTRERAS MD Sep 09, 2024 22:52
--- NOTE | 2024-09-09 23:22 | DVHPN2 ---
Progress Note - Dictate Date Seen: Sep 09, 2024 Medical Necessity Reason Pt with a Central, PICC or Fol: No Subjective Patient was seen and evaluated in follow up. Patient has no new complaints at this time. Patient denies any cardiac symptoms. Patient is cardiac stable for discharge. Telemetry reviewed. vital signs Vital Sign Date Time Temp Pulse Resp B/P (MAP) Pulse Ox O2 Delivery O2 Flow Rate FiO2 09/09/24 12:55 99.0 87 20 165/89 (114) 97 99.0 09/09/24 08:00 Room Air* 0 21 Total Intake and Output 09/08/24 09/08/24 09/09/24 15:00 23:00 07:00 Intake Total 50 ml 750 ml 120 ml Output Total 350 ml 225 ml Balance 50 ml 400 ml -105 ml objective GENERAL: Alert and oriented x 3. EYES: PERRL, EOMI. Anicteric. HENT: Moist mucous membranes. LUNGS: Clear to auscultation bilaterally. CARDIOVASCULAR: Regular rate and rhythm. ABDOMEN: Soft, nontender and nondistended. EXTREMITIES: No edema. NEUROLOGIC: No focal neurological deficits. SKIN: Warm, dry. laboratory and microbiology Laboratory Tests 09/06/24 12:55 Test 09/06/24 12:55 Range/Units Serum Glucose 89 74-106 mg/dL Problem List Atrial fibrillation with rapid ventricular response, newly diagnosed, now in normal sinus rhythm. Rule out structural heart disease. Hypertension. Pneumonia. Acute kidney injury. ?Dementia. Assessment/Plan Continued all current supportive medical care. IV antibiotics as ordered. DVT prophylactics. Metoprolol. Morphine for pain management. Additional plan as per the hospital course. Dietary Evaluation Review Recommendations by RD: Protein Supplementation Comments: 1) Initiate Ensure Enlive bid. Liberalize diet to 2g Na. Encourage optimal PO intake. 2) Follow-up with cardiology and pulmonology 3) Continue to monitor I&O, labs, and skin integrity Expected Outcomes/Goals: 1) appetite and labs to improve 2) follow-up in 3-5 days Plan discussed with: Patient LIVIA VAZQUEZ MD Sep 09, 2024 23:22
--- NOTE | 2024-09-14 19:42 | DVHPN2 ---
Subjective The patient is seen and examined at bedside. Still complain of shortness for breath. Reviewed: Care Plan, H&P, Medications Changes from previous H/P or p: No Changes General: Per HPI Objective General Appearance: Alert, Cooperative, mild distress, Other (Encephalopathic) HEENT: Atraumatic, PERRLA Lungs: Normal air movement, Other (Rhonchi to right lower lobe) Cardiovascular: Normal S1, Normal S2 Abdomen: Normal bowel sounds, Soft, No tenderness, No hepatospenomegaly, No masses Genitourinary: No Apparent Abnormalities Musculoskeletal: Normal sensory function, Normal motor function Skin: Dry, Intact Psych/Mental Status: Mental status NL, Mood NL Laboratory Results Laboratory Tests 09/06/24 12:55 Urinalysis Test 09/05/24 08:24 Urine Color Yellow (Yellow) Urine Clarity Clear (Clear) Urine pH 5.5 (5.0-9.0) Urine Specific [place] 1.019 (1.001-1.035) Urine Protein 1+ (Negative) H Urine Ketones 1+ (Negative) H Urine Blood 3+ /uL (Negative) H Urine Nitrite Negative (Negative) Urine Bilirubin Negative (Negative) Urine Urobilinogen Normal mg/dL (Negative) Urine Leukocyte Esterase Trace /uL (Negative) Urine RBC 31 /hpf (0 - 4) Urine Microscopic WBC 5 /HPF (0-5) Urine Squamous Epithelial Cells None seen /hpf (<5) Urine Bacteria Few /hpf (None Seen) H Urine Mucus Few (None Seen) Urine Glucose Normal mg/dL (Normal) Microbiology Microbiology Date/Time Source Procedure Growth Status 09/05/24 08:24 Voided Urine Urine Culture - Final Complete 09/04/24 01:56 Blood Blood Culture - Final NO GROWTH AFTER 5 DAYS OF INCUBATION. Complete Assessment/Plan Assessment/Plan -acute hypoxic respiratory failure -community-acquired pneumonia, probable Gram-positive/Gram-negative etiology -metabolic encephalopathy secondary to acute infection -primary hypertension -? Dementia -hypokalemia -AFib with RVR Plan: Continuing current management. Continuing with metoprolol. Continuing with nebulizer Continuing with IV antibiotic Rocephin and Zithromax. Replace electrolytes This medical document was created using an electronic medical record system with [employer] direct computerized dictation system. Although this document has been carefully reviewed, there may still be some phonetic and typographical errors. These areas are purely typographical due to imperfections of the software programs, and do not reflect any compromise in the patient's medical care. Plan discussed with: Patient Date of Service: Sep 08, 2024 Billing Provider: SAMANTHA CONTRERAS MD Common Visit Codes: [id number] INP/OBS CARE(HIGH) SAMANTHA CONTRERAS MD September 14, 2024 19:42
[2024-09-15] MEDS ORDERED: METO25TA5 PO (18:40)
== END 2024-09-09 15:30 | disposition home or self-care (01) | DRG 177 ==
LOC: ER 01:29 → EDBD 01:29 → OVERFLOW 04:25 → TELE-WESTW 12:35
PROVIDERS: ADMIT Internal Medicine; ATTEND Internal Medicine
DX: J15.69 Pneumonia due to other Gram-negative bacteria (principal); G93.41 Metabolic encephalopathy; J96.01 Acute respiratory failure with hypoxia; N17.9 Acute kidney failure, unspecified; N39.0 Urinary tract infection, site not specified; J15.9 Unspecified bacterial pneumonia; E87.6 Hypokalemia; I10 Essential (primary) hypertension; F03.A0 Unspecified dementia, mild, without behavioral disturbance, psychotic disturbance, mood disturbance, and anxiety; I48.91 Unspecified atrial fibrillation
CPT/HCPCS: 36415; 70450; 71045; 80048; 80053; 80061; 80320; 81001; 82962; 83036; 83605; 83735; 84443; 84484; 85025; 85379; 87040; 87086; 93005; 93306; 97116; 97163; 97530; 99291; G0378; J2405